=== PATIENT | female | born 1945 | race Caucasian/White ===

== ENCOUNTER → 2016-05-04 | Outpatient (CLI) | payer MEDICARE, OTHER ==
--- NOTE | 2016-05-04 15:30 | NM ---
EXAMINATION TYPE: NM bone scan whole body DATE OF EXAM: 05/04/2016 3:16 PM COMPARISON: Lumbar spine 11 April 2016 HISTORY: Low back pain M54.5, paresthesia skin, R20.2 Delayed whole-body scanning was performed following the injection of 27.5 mCi Tc 99m MDP. Images acq uired 4 hours post injection. FINDINGS: Focus of abnormal increased radiotracer uptake is present along the left anterior fifth rib. Bandlike uptake is noted at T12 and L4 compatible with probable osteoporotic compression fractures. Normal so ft tissue uptake is present. Uptake within the feet, ankles, wrists, elbows, shoulders, knees, sterno manubrial joints and hands is likely due to degenerative change. IMPRESSION: Osteoporotic compression fractures are suspected. Degenerative changes. Correlate for trauma to the a nterior fifth rib on the left.
== END ==
LOC: RADNMMAIN 10:37
PROVIDERS: ATTEND Physical Medicine & Rehabilitation
DX: R20.2 Paresthesia of skin (principal); M54.5 Low back pain; M47.896 Other spondylosis, lumbar region; M54.6 Pain in thoracic spine; M47.894 Other spondylosis, thoracic region
CPT/HCPCS: 78306; A9503

== ENCOUNTER → 2017-06-13 | Outpatient (CLI) | payer MEDICARE, OTHER ==
--- NOTE | 2017-06-13 11:14 | XR ---
EXAMINATION TYPE: XR chest 2V DATE OF EXAM: 06/13/2017 COMPARISON: 02/22/2016 HISTORY: 71 year-old female COPD disease unspecified, congested TECHNIQUE: Frontal and lateral views FINDINGS: Heart upper limits of normal in size, stable. Mild elongation of the thoracic aorta. Mild diffuse int erstitial prominence is similar to prior. Hazy lower lung densities related to overlying soft tissue. Mild hyperinflation. No consolidation or pleural effusion. IMPRESSION: Chronic changes, possible underlying COPD. No acute change seen.
== END | disposition home or self-care (01) ==
LOC: RADXRMAIN 10:40
PROVIDERS: ATTEND Family Medicine
DX: J98.4 Other disorders of lung (principal)
CPT/HCPCS: 71046

== ENCOUNTER → 2017-06-13 | Outpatient (CLI) | payer MEDICARE, OTHER ==
--- NOTE | 2017-06-15 08:50 | MM ---
Reason for exam: screening (asymptomatic). Last mammogram was performed 1 year and 4 months ago. History: Patient is postmenopausal and has history of breast cancer at age 58. Family history of breast cancer in mother at age 85 and breast cancer in aunt. Lumpectomy of the right breast, 2004. Radiation therapy of the right breast, 2003. Physical Findings: A clinical breast exam by your physician is recommended on an annual basis and results should be correlated with mammographic findings. MG 3D Screening Mammo W/Cad Bilateral CC and MLO view(s) were taken. Prior study comparison: February 05, 2016, bilateral MG 3d screening mammo w/cad. The breast tissue is heterogeneously dense. This may lower the sensitivity of mammography. There is chronic nodularity in the right breast. Asymmetric density medially in the left breast is stable. ASSESSMENT: Benign, BI-RAD 2 RECOMMENDATION: Routine screening mammogram of both breasts in 1 year.
== END | disposition home or self-care (01) ==
LOC: RADMAMWWP 10:18
PROVIDERS: ATTEND Family Medicine
DX: Z12.31 Encounter for screening mammogram for malignant neoplasm of breast (principal)
CPT/HCPCS: 77063; 77067

== ENCOUNTER → 2017-06-16 | Outpatient (CLI) | payer MEDICARE, OTHER ==
[2017-06-16 13:44] LABS: HGB 15.4 gm/dL (11.4-16.0); MCH 29.9 pg (25.0-35.0); MCHC 31.4 g/dL (31.0-37.0); MCV 95.4 fL (80.0-100.0); Platelet Count 178 k/uL (150-450); RBC 5.14 m/uL (3.80-5.40); RDW 12.9 % (11.5-15.5); WBC 5.8 k/uL (3.8-10.6)
[2017-06-16 13:56] LABS: INR 1.1 (<1.2); Prothrombin Time 10.3 sec (9.0-12.0)
== END ==
LOC: LABWHC1 12:34
PROVIDERS: ATTEND Surgery
DX: D68.9 Coagulation defect, unspecified (principal)
CPT/HCPCS: 36415; 85027; 85610

== ENCOUNTER 2017-07-04 07:23 | Day surgery (SDC) | payer MEDICARE, OTHER ==
[2017-06-30 09:43] VITALS: BMI 30.4
[~2017-07-04 07:23] MED LIST: LIDOCAINE 1% 20 ML VIAL (10MG/ML) FOR IV START INTRADERMA PRN
[2017-07-04 07:55] VITALS: RESP 18; TEMP 97.1
[2017-07-04] MEDS: LACTATED RINGERS 1,000 ML IV SCH ×2 (08:05→08:25)
[2017-07-04] MEDS ORDERED: PROPOFOL 10 MG/ML 20 ML VIAL IV ONE (08:28)
[2017-07-04] MEDS ORDERED: LIDOCAINE 1% INJ 10MG/ML (20 ML MDV) ONE (08:28)
[2017-07-04] MEDS ORDERED: GLUCAGON 1 MG/ML VIAL ONE (08:28)
--- NOTE | 2017-07-04 09:14 | P.OP ---
Date of Procedure: 07/04/17 Preoperative Diagnosis: Positive cologuard, never had colonoscopy Postoperative Diagnosis: Extensive diverticuli, sharp angulation at 30 cm, internal hemorrhoids Procedure(s) Performed: Attempted colonoscopy Anesthesia: MAC Surgeon: Shreya Vaughan Estimated Blood Loss (ml): 0 IV fluids (ml): 650 Pathology: none sent Condition: stable Disposition: PACU Indications for Procedure: Positive cologuard Operative Findings: Extensive diverticuli, tortuous bowel, internal hemorrhoids Description of Procedure: Patient was taken to the endoscopy suite and placed in the left lateral decubitus position. Rectal exam was performed patient was noted to have good sphincter tone no masses. Colonoscope was passed into the anus and into the rectum. The scope was able to be passed up to 30 cm however the bowel was extremely tortuous with sharp angulation with multiple diverticuli the scope could not be advanced beyond 30 cm despite multiple attempts. The patient was placed on her back and despite this the scope could not be advanced beyond 30 cm. Therefore the scope was withdrawn being careful to evaluate the mucosa up to 30 cm. The scope was retroflexed in the rectum and internal hemorrhoids were identified. Therefore was determined to terminate the procedure and obtain a barium enema. Impression/plan: 1. Extremely tortuous bowel with sharp angulation at 30 cm 2. Extensive diverticuli 3. Internal hemorrhoids Plan: 1. Barium enema 2. Probable conservative management of diverticuli and hemorrhoids
--- NOTE | 2017-07-04 09:17 | P.DS ---
Providers Attending physician: Shreya Vaughan Primary care physician: Manfred De Anda Plan - Discharge Summary New Discharge Prescriptions: No Action Levothyroxine Sodium [Synthroid] 50 mcg PO DAILY Atorvastatin [Lipitor] 20 mg PO HS Discharge Medication List Levothyroxine Sodium [Synthroid] 50 mcg PO DAILY 02/22/16 [History] Atorvastatin [Lipitor] 20 mg PO HS 06/30/17 [History] Follow up Appointment(s)/Referral(s): Shreya Vaughan MD [STAFF PHYSICIAN] - 1 Week Activity/Diet/Wound Care/Special Instructions: Scheduled for barium enema Do not drive today Follow-up with Dr. De Anda in 1 week Discharge Disposition: HOME SELF-CARE
[2017-07-04 09:58] VITALS: BP 109/59; PULSE 71
--- NOTE | 2017-07-04 14:30 | FL ---
EXAMINATION TYPE: FL barium enema w air contrast DATE OF EXAM: 07/04/2017 COMPARISON: NONE HISTORY: Change in bowel habits. Incomplete colonoscopy. TECHNIQUE: Barium and air were instilled into the colon from the rectum to the cecum. Multiple spot and overhead images are obtained. FINDINGS: There is evidence for annular constricting lesion within the region of the mid to proximal sigmoid colon. Findings felt to reflect malignancy until proven otherwise. Sigmoid diverticulosis not ed. No additional lesions identified with certainty. No polypoid lesions are identified. Mucosal fol d pattern has a normal appearance. No evidence for inflammatory bowel disease. Normal-appearing lexy endix which is retrocecal. No significant diverticular disease. IMPRESSION: 1.annular constricting lesion within the region of the mid to proximal sigmoid colon. Findings felt t o reflect malignancy until proven otherwise.
--- NOTE | 2017-07-07 06:11 | CDI ---
Date: 07/07/17 CDS/Household Chores Name: Sharron Mcqueen Phone: If any questions, call Kaylan Beck Chucking Machine Set Up Operator at [phone] Patient Name: Aleja Hwnag Admit Date: 07/04/17 Discharge Date: 07/04/17 ATTENTION: The [facility] Coding Staff appreciate your assistance in clarifying documentation. Please respond to the clarification below the line at the bottom and electronically sign. The [facility] Coding staff will review the response and follow-up if needed. Please note: Queries are made part of the Legal Health Record. If you have any questions, please contact the Chucking Machine Set Up Operator. Dear Dr. Vaughan, Please provide clarification on the extent the procedure was performed. Please clarify the area of the colon that the procedure reached. (i.e. Sigmoid, Descending, transverse) Thank you for your kind consideration. The procedure was terminated at about 30 cm, in the distal sigmoid. MTDD
== END 2017-07-04 10:13 | disposition home or self-care (01) ==
LOC: ORWHC2ENDO 07:23
PROVIDERS: ATTEND Surgery
DX: Q43.8 Other specified congenital malformations of intestine (principal); K64.8 Other hemorrhoids; R19.5 Other fecal abnormalities; E78.5 Hyperlipidemia, unspecified; E07.9 Disorder of thyroid, unspecified; Z79.899 Other long term (current) drug therapy; K57.30 Diverticulosis of large intestine without perforation or abscess without bleeding
CPT/HCPCS: 74280; 45330; J1610; J2001; J2704; 45378

== ENCOUNTER → 2018-07-11 | Outpatient (CLI) | payer MEDICARE, OTHER ==
--- NOTE | 2018-07-12 10:42 | MM ---
Reason for exam: screening (asymptomatic). Last mammogram was performed 1 year and 1 month ago. History: Patient is postmenopausal and has history of breast cancer at age 58. Family history of breast cancer in mother at age 85 and breast cancer in aunt. Lumpectomy of the right breast, 2004. Radiation therapy of the right breast, 2003. Physical Findings: A clinical breast exam by your physician is recommended on an annual basis and results should be correlated with mammographic findings. MG Screening Mammo w CAD Bilateral CC and MLO view(s) were taken. Prior study comparison: June 13, 2017, bilateral MG 3d screening mammo w/cad. February 05, 2016, bilateral MG 3d screening mammo w/cad. The breast tissue is heterogeneously dense. This may lower the sensitivity of mammography. Right upper outer quadrant middle depth focal asymmetry 5cm from nipple. ASSESSMENT: Incomplete: need additional imaging evaluation, BI-RAD 0 RECOMMENDATION: Special view mammogram of the right breast. If lesion persists on supplemental views, image directed ultrasound is recommended. [facility] will attempt to contact patient to return for supplemental views and ultrasound if indicated.
== END | disposition home or self-care (01) ==
LOC: RADMAMWWP 10:40
PROVIDERS: ATTEND Family Medicine
DX: Z12.31 Encounter for screening mammogram for malignant neoplasm of breast (principal)
CPT/HCPCS: 77067

== ENCOUNTER → 2018-07-17 | Outpatient (CLI) | payer MEDICARE, OTHER ==
--- NOTE | 2018-07-18 07:35 | MM ---
Reason for exam: additional evaluation requested from abnormal screening. Last mammogram was performed less than 1 month ago. History: Patient is postmenopausal and has history of breast cancer at age 58. Family history of breast cancer in mother at age 85 and breast cancer in aunt. Lumpectomy of the right breast, 2004. Radiation therapy of the right breast, 2003. Physical Findings: Nurse did not find any significant physical abnormalities on exam. MG 3D Work Up W/Cad RT Spot compression CC, spot compression MLO, and LM view(s) were taken of the right breast. Prior study comparison: July 11, 2018, bilateral MG screening mammo w CAD. June 13, 2017, bilateral MG 3d screening mammo w/cad. The breast tissue is heterogeneously dense. This may lower the sensitivity of mammography. The previously seen abnormality resolves on additional views and appears as fibroglandular tissue compatible with summation. No suspicious abnormality. These results were verbally communicated with the patient and result sheet given to the patient on 07/17/18. ASSESSMENT: Negative, BI-RAD 1 RECOMMENDATION: Return to routine screening mammogram schedule for both breasts.
== END | disposition home or self-care (01) ==
LOC: RADMAMWWP 14:40
PROVIDERS: ATTEND Family Medicine
DX: R92.8 Other abnormal and inconclusive findings on diagnostic imaging of breast (principal)
CPT/HCPCS: 77065; G0279; 77061

== ENCOUNTER → 2019-03-23 | Outpatient (CLI) | payer MEDICARE, OTHER ==
[2019-03-23 11:54] LABS: Basophils # (A) 0.1 k/uL (0-0.2); Basophils % (A) 1 %; Eosinophils # (A) 0.2 k/uL (0-0.7); Eosinophils % (A) 4 %; HCT 39.1 % (34.0-46.0); Lymphocytes # (A) 1.6 k/uL (1.0-4.8); Lymphocytes % (A) 35 %; MCHC 33.4 g/dL (31.0-37.0); MCV 95.9 fL (80.0-100.0); Mean Platelet Volume 6.1; Monocytes # (A) 0.3 k/uL (0-1.0); Monocytes % (A) 6 %; Neutrophils # (A) 2.4 k/uL (1.3-7.7); Neutrophils % (A) 52 %; Platelet Count 180 k/uL (150-450); RBC 4.08 m/uL (3.80-5.40); RDW 11.8 % (11.5-15.5); WBC 4.6 k/uL (3.8-10.6)
[2019-03-23 23:09] LABS: Albumin 4.2 g/dL (3.80-4.90); Anion Gap 6.6 mmol/L (4.00-12.00); BUN/Creat Ratio 22.22 Ratio (12.00-20.00); Calcium 9.5 mg/dL (8.7-10.3); Carbon Dioxide 28.4 mmol/L (21.6-31.8); Globulin 2.1 g/dL (1.6-3.3); Non-African American GFR(CKD) 63.9 (60.0-200.0); Potassium 4.4 mmol/L (3.5-5.5); Total Bilirubin 0.4 mg/dL (0.3-1.2); Total Protein 6.3 g/dL (6.2-8.2)
[2019-03-23 23:17] LABS: T4, Free (Free Thyroxine) 1.1 ng/dL (0.80-1.80)
== END | disposition home or self-care (01) ==
LOC: LABWHC1 11:05
PROVIDERS: ATTEND Family Medicine
DX: K64.8 Other hemorrhoids (principal); J44.9 Chronic obstructive pulmonary disease, unspecified
CPT/HCPCS: 36415; 80053; 84439; 84443; 85025

== ENCOUNTER → 2019-04-05 | Outpatient (CLI) | payer MEDICARE, OTHER ==
--- NOTE | 2019-04-05 10:10 | BD ---
EXAMINATION TYPE: Axial Bone Density DATE OF EXAM: 04/05/2019 COMPARISON: 02/05/2016 CLINICAL HISTORY: M 81.0 Height: 63.7 IN Weight: 152 LBS FRAX RISK QUESTIONS: History of Fracture in Adulthood: THORACIC FX AGE 71 Secondary Osteoporosis: 3. Menopause before 45: AGE 51 RISK FACTORS HISTORY OF: Spine Fracture: THORACIC SPINE AGE 71 Family History of Osteoporosis: YES MOTHER; GRANDFATHER AND GRANDMOTHER(P) Active: YES Postmenopausal woman: AGE 51 Take estrogen and/or progesterone medications: NOT NOW How long: TOOK CONTROL FROM AGE [age] Frequent falls: YES DUE TO BALANCE MEDICATIONS: Thyroid Medications: YES Which medication: Synthroid How Lon + YEARS Osteoporosis Medications: NOT NOW Which medication: Actonel How Lon MONTHS Additional Medications: THYROID MED, TYLENOL 4, VIT B COMPLEX, CHANTIX, Additional History: BREAST CANCER WITH RADIATION EXAM MEASUREMENTS: Bone mineral densitometry was performed using the [email or web address] System. Bone mineral density as measured about the Lumbar spine is: ----- L1-L4(G/cm2): 1.080 T Score Values are as follows: ----- L2: -1.4 ----- L3: -1.1 ----- L4: -0.1 ----- L1-L4: -0.8 Bone mineral density has: Increased 6.2% since study of: 02/05/2016 Bone mineral density about the R hip (g/cm2): 0.674 Bone mineral density about the L hip (g/cm2): 0.632 T Score values are as follows: -----R Neck: -2.6 -----L Neck: -2.9 -----R Total: -2.5 -----L Total: -2.6 Bone mineral density has: Decreased -8.1% since study of: 02/05/2016 IMPRESSION: Osteoporosis (T Score less than -2.5). There is increased fracture risk and therapy is usually indicated based on age. Re-Screen 1-2 years. NOTE: T-SCORE=SD OF THE YOUNG ADULT MEAN.
== END | disposition home or self-care (01) ==
LOC: RADBDWWP 07:10
PROVIDERS: ATTEND Family Medicine
DX: M81.0 Age-related osteoporosis without current pathological fracture (principal)
CPT/HCPCS: 77080

== ENCOUNTER → 2019-04-11 | Outpatient (CLI) | payer MEDICARE, OTHER ==
[2019-04-11 16:26] LABS: Chol/HDL Ratio 3.13; LDL Cholesterol,Calculated 113.4 mg/dL (0.0-131.0); VLDL Calculation 18.6 mg/dL (5.00-40.00)
== END | disposition home or self-care (01) ==
LOC: LABWHC1 08:20
PROVIDERS: ATTEND Family Medicine
DX: E03.9 Hypothyroidism, unspecified (principal); M80.08XD Age-related osteoporosis with current pathological fracture, vertebra(e), subsequent encounter for fracture with routine healing
CPT/HCPCS: 36415; 80061; 82306

== ENCOUNTER → 2019-09-25 | Outpatient (CLI) | payer MEDICARE, OTHER ==
--- NOTE | 2019-09-25 14:12 | XR ---
EXAMINATION TYPE: XR lumbar spine 2 or 3V DATE OF EXAM: 09/25/2019 Comparison: 02/01/2016 Clinical History: 74-year-old female chronic lower back pain, S32.000, G62.9 Findings: Mild levoconvex curvature of the lumbar spine. Inferior endplate compression deformity of T12 appears new from prior exam. Mild superior endplate deformity of L4 is unchanged. Moderate degenerative disc disease L3-L4 and L4-L5 and mild at additional levels. Facet arthropathy throughout with straightening of the normal lumbar lordosis. Grade 1 retrolisthesis at L2-L3 and grade 1 anterolisthesis at L3-L4. Impression: 1. Inferior endplate compression deformity with resultant anterior wedging at T12 not seen back in 20 16. Finding is new from then but still age indeterminate. Clinically correlate. 2. Minimal superior endplate deformity of L4 is chronic and unchanged. 3. Scattered [id number] degenerative disc disease increased from 2016. Facet arthropathy with g rade 1 spondylolistheses at L2-L3 and L3-L4.
== END | disposition home or self-care (01) ==
LOC: RADXRMAIN 13:51
PROVIDERS: ATTEND Family Medicine
DX: M51.36 Other intervertebral disc degeneration, lumbar region (principal); M43.16 Spondylolisthesis, lumbar region; M46.96 Unspecified inflammatory spondylopathy, lumbar region; G62.9 Polyneuropathy, unspecified
CPT/HCPCS: 72100

== ENCOUNTER → 2019-12-05 | Outpatient (CLI) | payer MEDICARE, OTHER ==
--- NOTE | 2019-12-09 09:02 | MM ---
Reason for exam: screening (asymptomatic). Last mammogram was performed 1 year and 5 months ago. History: Patient is postmenopausal and has history of breast cancer at age 58. Family history of breast cancer in mother at age 85 and breast cancer in aunt. Lumpectomy of the right breast, 2004. Radiation therapy of the right breast, 2003. Physical Findings: A clinical breast exam by your physician is recommended on an annual basis and results should be correlated with mammographic findings. MG 3D Screening Mammo W/Cad Bilateral CC and MLO view(s) were taken. Prior study comparison: July 17, 2018, right breast MG 3d work up w/cad RT. July 11, 2018, bilateral MG screening mammo w CAD. The breast tissue is heterogeneously dense. This may lower the sensitivity of mammography. There is chronic nodularity in the left breast. Post surgical and post therapy changes right breast. No significant changes when compared with prior studies. ASSESSMENT: Benign, BI-RAD 2 RECOMMENDATION: Routine screening mammogram of both breasts in 1 year.
== END | disposition home or self-care (01) ==
LOC: RADMAMWWP 09:50
PROVIDERS: ATTEND Family Medicine
DX: Z12.31 Encounter for screening mammogram for malignant neoplasm of breast (principal)
CPT/HCPCS: 77063; 77067

== ENCOUNTER → 2020-03-12 | Outpatient (CLI) | payer MEDICARE, OTHER ==
[2020-03-12 11:38] VITALS: BP 112/65; PULSE 77; RESP 16; TEMP 97.7
--- NOTE | 2020-03-12 11:40 | P.PAINCN ---
History of Present Illness - Reason for Consult Consult date: 03/12/20 - History of Present Illness This is a 74-year-old patient referred by Dr. Walker/Edison for low back pain. In the past she has injections with Dr Hogan in the past with no significant relief. Unclear what procedures she's had, sounds like she has had epidurals as well as medial branch blocks that had no relief at all. She has been started on Cymbalta 30 mg since the end of December which has been a miracle for her as she states. From june to January she said she was a "vegetable," she then started Cymbalta and has been able to move around much more. It is located with the low back with numbness that radiates down the entire bilateral lower extremity to the feet. She states that she is a difficulty with prolonged ambulation is unable to walk for long distances without her legs feeling heavy. Notes that she is unsteady with her gait. Also note some pain in her groin bilaterally that is improving over time. She also complains of pain in her neck which she says radiates to bilateral upper extremities and causes her hands to lock up. She has had carpal tunnel surgery on the left and is considering getting it done on the right. Feels surgery didn't help with her pain although did help with her overall strength and functionality. Currently her pain as an 8 out of 10, at best 5 out of 10, at its worst a 10 out of 10. In addition to above, 13-point review of systems is also negative for chest pain, shortness of breath, changes in vision, changes in hearing, new onset weakness, abdominal pain, diarrhea, extreme fatigue, malaise, fever, skin changes, homicidal or suicidal ideation, or bowel or bladder incontinence. Physical exam: Vital Signs: Reviewed in EMR GENERAL: Well appearing, walks with a cane PSYCH: Mood and affect is appropriate. Awake, alert, and oriented SKIN: Skin color, texture, turgor normal, no rashes or lesions HEENT: Normocephalic, atraumatic. EOM intact CV: No pedal edema RESP: Respirations are unlabored, no audible wheezing GI: Abdomen non-distended MUSCULOSKELETAL: Bilateral upper and lower extremity strength is normal and symmetric. No atrophy or tone abnormalities are noted. Neck: pain to palpation over the cervical paraspinous muscles. Spurling positive, Axial Loading Test positive Mcneal's sign negative. pain with neck flexion, extension, and lateral flexion. No obvious deformity or signs of trauma. Normal cervical lordotic curve and normal cervical spine range of motion Lumbar spine: Straight leg raising in the sitting position is negative for radicular pain. pain to palpation over the lumbar spine and paraspinous muscles . positive for pain with facet loading and back extension/rotation. Decreased lumbar extension due to pain Extremities: Peripheral joint ROM is full and pain free without obvious instability or laxity in all four extremities. No edema or skin discolorations noted. Gait: Gait is normal NEUR: Bilateral upper and lower extremity coordination and muscle stretch reflexes are physiologic and symmetric. Negative clonus. No loss of sensation is noted. Cranial nerves are grossly intact. Imaging: Reveiwed in EMR Assessment: 1. Centralized pain syndrome 2. Lumbar spondylosis 3. Neck pain Plan: 1. Explanation: Diagnoses, prognoses, and multiple treatment options including but not limited to physical therapy, interventional therapies, medication management and surgery were discussed with the patient and all questions were answered to the patient's satisfaction. 2. Investigations: Can consider cervical MRI in the future if patient would like to proceed with that. Overall she has neck pain and arm pain that is nondermatomal so I am unsure if there is any sort of specific nerve root impingement that might be occurring. 3. Counseling: The patient was counseled for 3 minutes on EXERCISE. Specifically, the patient was instructed regarding the importance of exercise in the context of both chronic pain and overall health. 4. Procedures: At this point I do not consider her a procedural candidate. She has had epidurals and medial branch blocks no relief. Although there are findings on MRI, her pain is mostly centralized in nature. Her pain is located in her legs, her groin, her back, her neck, and her arms and she feels like they're all interconnected. In the future we do obtain a cervical MRI we could consider trying cervical epidural or cervical medial branch block on her findings, however at this time I would not recommend any procedures 5. Consultations: Her primary care doctor was going to send her neurologist. I'm unsure what her neurologist will continue to her care, however given that her primary care provider did recommend this and did encourage her to find one that could fit her insurance that she is having trouble with that. Did have a long discussion with her that overall given that she has centralized pain, physical therapy and mindfulness techniques will be the most helpful for her. I did write her a prescription for physical therapy. 6. Medications: I encouraged her and is optimistic that her Cymbalta will continue to be helpful for her. She is currently taking 30 mg once a day. She says this medication is helping her significantly and I told her that in the future they can go up to 60 mg if needed. 7. Disposition: As needed Past Medical History Past Medical History: Cancer, COPD, Hyperlipidemia, Thyroid Disorder Additional Past Medical History / Comment(s): back pain, breast cancer History of Any Multi-Drug Resistant Organisms: None Reported Past Surgical History: Hysterectomy Additional Past Surgical History / Comment(s): THYROIDECTOMY, RT partial mastectomy, BILAT CATARACT SX, Past Anesthesia/Blood Transfusion Reactions: No Reported Reaction Past Psychological History: No Psychological Hx Reported Past Alcohol Use History: None Reported Additional Past Alcohol Use History / Comment(s): SMOKES 1 PACK A WEEK SINCE AGE 19 Past Drug Use History: None Reported - Past Family History Mother Family Medical History: Cancer Medications and Allergies Home Medications Medication Instructions Recorded Confirmed Type Levothyroxine Sodium [Synthroid] 50 mcg PO DAILY 02/22/16 07/04/17 History Atorvastatin [Lipitor] 20 mg PO HS 06/30/17 07/04/17 History Allergies Allergy/AdvReac Type Severity Reaction Status Date / Time No Known Allergies Allergy Verified 03/12/20 10:58 PQRS Measure Charge Sheet PQRS Narrative: Smoking Status Current every day smoker Home Medications: Ambulatory Orders Levothyroxine Sodium [Synthroid] 50 mcg PO DAILY 02/22/16 Atorvastatin [Lipitor] 20 mg PO HS 06/30/17
== END | disposition home or self-care (01) ==
LOC: PNWHC3 10:35
PROVIDERS: ATTEND Anesthesiology
DX: G89.0 Central pain syndrome (principal); M47.9 Spondylosis, unspecified; M54.2 Cervicalgia; E07.9 Disorder of thyroid, unspecified; E78.5 Hyperlipidemia, unspecified; Z79.890 Hormone replacement therapy; Z79.899 Other long term (current) drug therapy
CPT/HCPCS: 99211

== ENCOUNTER → 2020-04-07 | Outpatient (CLI) | payer MEDICARE, OTHER ==
[2020-04-07 20:13] LABS: African American GFR (CKD) 64.7 (60.0-200.0); Albumin 4.4 g/dL (3.80-4.90); Anion Gap 7.3 mmol/L (4.00-12.00); Calcium 9.5 mg/dL (8.7-10.3); Carbon Dioxide 27.7 mmol/L (21.6-31.8); Globulin 2.2 g/dL (1.6-3.3); Magnesium 2.1 mg/dL (1.5-2.4); Non-African American GFR(CKD) 55.8 (60.0-200.0); Total Bilirubin 0.7 mg/dL (0.3-1.2); Total Protein 6.6 g/dL (6.2-8.2)
== END | disposition home or self-care (01) ==
LOC: LABWHC1 11:39
PROVIDERS: ATTEND Psychiatry & Neurology Neurology
DX: R20.2 Paresthesia of skin (principal); Z79.899 Other long term (current) drug therapy
CPT/HCPCS: 36415; 80053; 82306; 82607; 83735; 84439; 84443; 84481

== ENCOUNTER → 2020-06-15 | Outpatient (CLI) | payer MEDICARE, OTHER ==
--- NOTE | 2020-06-15 11:13 | XR ---
EXAMINATION TYPE: XR chest 2V DATE OF EXAM: 06/15/2020 COMPARISON: 06/13/2017 INDICATION: Lumbar stenosis posterior mastectomy TECHNIQUE: Frontal and lateral views of the chest are obtained. FINDINGS: The heart size is normal. The pulmonary vasculature is normal. The lungs are clear. Osseous structures appear intact. IMPRESSION: 1. No acute pulmonary process.
[2020-06-15 11:16] LABS: Basophils # (A) 0.1 k/uL (0-0.2); Basophils % (A) 2 %; Eosinophils # (A) 0.2 k/uL (0-0.7); Eosinophils % (A) 4 %; HGB 12.8 gm/dL (11.4-16.0); Lymphocytes # (A) 1.3 k/uL (1.0-4.8); Lymphocytes % (A) 31 %; MCV 93.9 fL (80.0-100.0); Mean Platelet Volume 7.4; Monocytes # (A) 0.3 k/uL (0-1.0); Monocytes % (A) 8 %; Neutrophils # (A) 2.3 k/uL (1.3-7.7); Neutrophils % (A) 54 %; Platelet Count 187 k/uL (150-450); RBC 4.26 m/uL (3.80-5.40); RDW 12.4 % (11.5-15.5); WBC 4.2 k/uL (3.8-10.6)
[2020-06-15 11:28] LABS: INR 0.9 (<1.2); Prothrombin Time 9.6 sec (9.0-12.0)
[2020-06-15 11:31] LABS: Appearance,Urine Clear (Clear); Bilirubin,Urine Negative (Negative); Blood,Urine Negative (Negative); Color,Urine Yellow; Glucose,Urine (UA) Negative (Negative); Ketones,Urine Negative (Negative); Leukocyte Esterase,Urine Negative (Negative); Nitrite,Urine Negative (Negative); Protein,Urine Negative (Negative); Specific Gravity,Urine 1.018 (1.001-1.035); Urobilinogen,Urine <2.0 mg/dL (<2.0)
[2020-06-15 11:39] LABS: Calcium 9.7 mg/dL (8.4-10.2); Potassium 4.1 mmol/L (3.5-5.1)
== END | disposition home or self-care (01) ==
LOC: LABPAT 10:00
PROVIDERS: ATTEND Orthopaedic Surgery Orthopaedic Surgery of the Spine
DX: Z01.818 Encounter for other preprocedural examination (principal); M48.061 Spinal stenosis, lumbar region without neurogenic claudication
CPT/HCPCS: 36415; 71046; 80048; 81003; 85025; 85610; 85730

== ENCOUNTER → 2020-06-22 | Outpatient (CLI) | payer MEDICARE, OTHER | END | disposition home or self-care (01) | LOC: LABPAT 15:29 | PROVIDERS: ATTEND Orthopaedic Surgery Orthopaedic Surgery of the Spine | DX: Z01.812 Encounter for preprocedural laboratory examination (principal) | CPT/HCPCS: 87070 ==

== ENCOUNTER 2020-06-24 07:26 | Day surgery (SDC) | payer MEDICARE, OTHER ==
[2020-06-16 12:20] VITALS: BMI 28.5
[~2020-06-24 07:26] MED LIST changes: +LIDOCAINE 1% (10MG/ML) FOR IV START INTRADERMA PRN; -LIDOCAINE 1% 20 ML VIAL (10MG/ML) FOR IV START INTRADERMA PRN; +ONDANSETRON 4 MG/2 ML VIAL IVP ONE; +ceFAZolin 1,000 MG in SODIUM CHLORIDE 0.9% IRRIGATIO 1,000 ML IRRIGATION PRN
[2020-06-24] MEDS: LACTATED RINGERS 1,000 ML IV SCH (07:48)
[2020-06-24] MEDS ORDERED: ROCURONIUM 10 MG/ML (5 ML VIAL) IV ONE (07:55)
[2020-06-24] MEDS ORDERED: LIDOCAINE 1% INJ 10MG/ML (20 ML MDV) ONE (07:55)
[2020-06-24] MEDS ORDERED: PHENYLEPHRINE-0.9% NACL SYG 1,000 MCG/10 ML SYRINGE ONE (07:55)
[2020-06-24] MEDS ORDERED: SUCCINYLCHOLINE CHLORIDE 100 MG/5 ML SYR IV ONE (07:55)
[2020-06-24] MEDS ORDERED: fentaNYL (PF) 50 MCG/ML 2 ML AMP ONE (07:55)
[2020-06-24] MEDS ORDERED: PROPOFOL 10 MG/ML 20 ML VIAL IV ONE (07:55)
[2020-06-24] MEDS ORDERED: WATER FOR INJECTION, STERILE 10 ML VIAL IV ONE (07:55)
[2020-06-24] MEDS ORDERED: GLYCOPYRROLATE 0.2 MG/ML 2 ML VIAL ONE (07:55)
[2020-06-24] MEDS ORDERED: NEOSTIGMINE 1 MG/ML 10 ML VIAL ONE (07:55)
[2020-06-24] MEDS ORDERED: HYDROmorphone (PF) 1 MG/ML ONE (07:55)
[2020-06-24] MEDS ORDERED: MIDAZOLAM 2 MG/2 ML VIAL ONE (07:55)
[2020-06-24] MEDS ORDERED: ePHEDrine SULFATE/0.9% NACL/PF 50 MG/5 ML SYRINGE IV ONE (07:55)
[2020-06-24] MEDS ORDERED: BUPIVACAIN-EPI 0.5%-1:200,000 30 ML VIAL SQ ONE (09:25)
[2020-06-24] MEDS ORDERED: GELATIN SPONGE,ABSORB (LARGE) 1 EACH SPONGE TOPICAL ONE (09:26)
[2020-06-24] MEDS ORDERED: THROMBIN (BOVINE) 5,000 UNIT VIAL TOPICAL ONE (09:26)
[2020-06-24] MEDS ORDERED: LACTATED RINGERS 1,000 ML IV ONE ×3 (09:45→12:00)
[2020-06-24] MEDS ORDERED: MAGNESIUM HYDROXIDE 2,400 MG/10 ML CUP PO PRN (11:10)
[2020-06-24] MEDS ORDERED: BENZOCAINE/MENTHOL LOZENG 1 EACH LOZENGE MUCOUS MEM PRN (11:10)
[2020-06-24] MEDS ORDERED: HYDROmorphone 0.5 MG/0.5 ML SYRINGE IVP PRN (11:10)
[2020-06-24] MEDS ORDERED: ONDANSETRON 4 MG/2 ML VIAL IVP PRN (11:11)
[2020-06-24] MEDS ORDERED: IBANDRONATE SODIUM 150 MG PO SCH (11:15)
--- NOTE | 2020-06-24 11:20 | P.OP ---
Date of Procedure: 06/24/20 Preoperative Diagnosis: Severe spinal stenosis L3 4, spondylolisthesis L3 4, low back pain, lower extremity radiculopathy, lower extremity weakness, facet arthrosis, degenerative disc disease with disc protrusion Postoperative Diagnosis: Same Anesthesia: GETA Pathology: none sent Condition: stable Disposition: PACU Description of Procedure: DESCRIPTION OF PROCEDURE(S): BRIEF OPERATIVE NOTE Preoperative Diagnosis: Severe spinal stenosis L3 4, spondylolisthesis L3 4, low back pain, lower extremity radiculopathy, lower extremity weakness, facet arthrosis, degenerative disc disease with disc protrusion Postoperative Diagnosis: Severe spinal stenosis L3 4, spondylolisthesis L3 4, low back pain, lower extremity radiculopathy, lower extremity weakness, facet arthrosis, degenerative disc disease with disc protrusion Procedure: Laminectomy and decompression L3 [address] navigation aided Minimally invasive Posterior lateral decompression and facet fusion L3 4 Minimally invasive Transforaminal lumbar interbody fusion for a 360 fusion L3 4 Discectomy for decompression L3 4 Placement of interbody graft L3 4 Use of computer navigation for fusion Local autogenous bone grafting Aspiration of bone marrow from the vertebral body pedicle L3 on the right Use of bone graft extenders Surgeon: Dr. Walker Jig Filler: Aiden ORTIZ who is present throughout the entire the case persistence during positioning, dissection, exposure, visualization, and all crucial elements of the case as well as closure. Anesthesia: General anesthesia per Estimated blood loss: Approximately 150 mL Complications: None apparent Components implanted: K2M minimally invasive Sims pedicle screw system withscrews measuring 6.5 mm in diameter to rods one Prolift 8-13 interbody cage with 10 mL of osteo amp bio4 bone graft substitute and 30 mL of the BX bone fibers to supplement the local autogenous bone graft and bone marrow aspirate Disposition: To recovery room in good stable condition. OPERATIVE INDICATIONS The patient has had severe issues at their lower extremity in her lower back over the past several years with significant worsening over the past several months. Over the past few months the patient had pain at her back and her bilateral lower extremity. The patient is having severe radicular symptoms at her bilateral lower extremity with weakness, particularly on the right. The patient is having significant pain in her back. They are unable to obtain any comfort. We did aggressive conservative treatment with medications therapy and interventional pain management however she was not having any relief. The patient also showed evidence of a listhesis with some dynamic instability at L3 4. The patient has been through conservative treatment. We discussed various treatment options including surgery, and the patient wishes to proceed with surgery We discussed the risk, patient's alternatives and benefits of surgery including but not limited to, risk of bleeding risk of infection, risk of need for further surgery, risk of decreased, loss of motion, muscle function, malunion nonunion, hardware failure, nerve damage, paralysis, heart attack, blindness and . They understood issues with the current pandemic and the possibility of exposure. OPERATIVE SUMMARY After discussing all the risks, patient alternatives and benefits at length, the patient elected to proceed with surgical intervention, signed informed consent, and presented for their procedure. The patient was seen and examined in the preoperative holding area and the surgical site was marked. The patient was giv en antibiotics and brought to the operating room. The patient was sedated and intubated by anesthesia in standard fashion. The patient was positioned on to the operating room table in a prone position on the appropriate frame which was well-padded and well molded. We were careful to pad any bony prominences and pressure points. We were careful to maintain the patient's cervical spine and good neutral alignment and position throughout. The patient was prepped and draped in a normal standard fashion. An appropriate timeout and keystone protocol performed. We were able to proceed with the s urgery. The local wound area was infiltrated with local anesthetic. Over the right iliac crest I was able to make small stab incisions and establish a guidepin screw fixation to the iliac crest 2. I was able place the computer referencing device over the guidepins to establish an appropriate reference point for the Ziem CT navigation. We then were able to place patient in an appropriate drape and do a navigation spin for visualization and 3-D reconstruction of the lumbar spine. I was able utilize C-arm guidance and navigation to establish appropriate position over the pedicles bilaterally at the appropriate levels at L3 4 . With the appropriate levels confirmed was able to make small stab incisions over the appropriate pedicle sites bilaterally. Utilizing the computer navigation device I was able to establish bony landmarks at the right iliac crest for a bony reference point for the navigation device. I was able to establish a Jamshidi needle over the lateral aspect of the pedicle and advanced the trocar into the pedicle being careful not to breech superiorly inferiorly medially or laterally using computer navigation device. Position was confirmed regularly with AP and lateral images on C-arm and with the computer navigation device at the appropriate levels bilaterally. I was able to establish the trocar into the pedicle appropriately into the posterior aspect of the vertebral body bilaterally at the appropriate levels. This was done at each of the pedicle positions and each of the vertebrae. At the superior vertebrae of L3 I was able to take approximately 25 mL of bone aspiration for use later in the case to supplement the allograft and autograft bone. I was able place the guidewire into the trocar and into the vertebral body appropriately under C-arm guidance. Dissection was taken down over the wire to the appropriate starting position for the screw placed. The appropriate length screw was chosen, threaded over the guidewire and screwed appropriately into the pedicle and vertebral body under C-arm guidance in excellent alignment and position with good bony purchase. Note was made of somewhat soft bone at each of the sites at L3 4 but we were still able to obtain good This is done at each of the screw sites at the appropriate levels.. With the screws intact I extended the incision to connect the screw hole sites on the most symptomatic side on the right. I dissected down to establish access over the pars and lamina to the base of the spinous process. I was able to expose the facet joint. The capsule the facet was taken down and showed some facet arthrosis at the joint. I was able to use a combination of curettes and Kerrison rongeurs and a high-speed drill to take down the facet joint and do a facetectomy. I was able get excellent foraminal decompression and central decompression with undermining across midline to perform a laminectomy centrally and contralaterally. As able get good central decompression. The ligamentum flavum was taken down to further decompress centrally and at bilateral neural foramen. I was able to expose the disc space and visualize the traversing nerve root. Note was made of some disc protrusion and disc herniation that was abutting the traversing nerve root at the level causing further compression of the nerve root. I was able to establish a annulotomy at the appropriate level protecting soft tissue and neural structures. Note was made of some disc desiccation at the disc. I performed a complete discectomy with accommodation of curettes and rasps and scrapers. I was able get good endplate preparation at the disc space. I sized for the appropriate size interbody spacer protecting the soft tissue and neural structures. The wound was copiously irrigated and suctioned dry. There is no evidence of any dural tear or leak. I was able to pack the disc space with local autogenous bone graft as well as a small amount of bone graft which was also placed into the interbody cage itself. Protecting the soft tissue structures and neural structures I was able place the interbody cage in good alignment and good position. I was able to do the expansion of the pro-lift cage appropriately to get good fixation at the vertebral bodies with good fit and fill at the interbody space. Position was confirmed with C-arm guidance. Good hemostasis maintained. There is no evidence of any dural tear or leak. The wound was irrigated and suctioned dry. With the hardware intact, intraoperative C-arm imaging was again taken which showed good alignment and position of the hardware at the appropriate levels of L3 4. We were then able to measure, contour and place the rods and appropriate hardware bilaterally. I was able to place capcrews, tighten them down, and torque them with the torque screwdriver appropriately. With this intact I was able to place the local autogenous bone graft with additional bone graft enhancer as necessary into the posterior lateral gutters over the decorticated transverse processes and facet joints on the contralateral side. The remainder of the bone graft was placed over the facet joint on the contralateral side after taking down the facet joint capsule. With the bone graft intact, a stable construct, and good decompression at the appropriate levels, we were able to proceed with closure. Good hemostasis was maintained. There is no evidence of dural tear or leak. The fascia was closed for a watertight closure. he subcuticular tissue was closed with absorbable suture. The wound was cleaned and dried and dressed with the appropriate dressing. The drapes were broken down. The patient was gently rolled back onto their hospital bed being careful to maintain their cervical spine and good neutral alignment and position. They were woken up by anesthesia, extubated, and brought to the recovery room in good stable condition. The patient will be admitted to the hospital for appropriate postoperative care, medical management and monitoring. We will continue to follow them closely about the postoperative course.
[2020-06-24] MEDS: HYDROmorphone 0.5 MG/0.5 ML SYRINGE IVP PRN ×2 (11:45→11:55)
[2020-06-24] MEDS ORDERED: ERGOCALCIFEROL 1,250 MCG (50,000 IU) CAPSULE PO SCH (12:00)
[2020-06-24] MEDS: HYDROmorphone 1 MG/ML 1 ML SYRINGE IVP PRN ×3 (13:01→19:52)
--- NOTE | 2020-06-24 14:51 | XR ---
EXAMINATION TYPE: XR lumbar spine 2 or 3V, FL guidance operating room DATE OF EXAM: 06/24/2020 Comparison: 07/12/2019 Clinical History: 74-year-old female MIN INVASIVE LUMBAR FUSION Findings: Intraoperative fluoroscopy demonstrating L3-L4 posterior and interbody fusion changes. FLUOROSCOPY Fluoroscopy time of 22 seconds was used during minimally invasive lumbar fusion. 2 image/s document/ s the procedure. Impression: Intraoperative fluoroscopy as above.
[2020-06-24] MEDS: ACETAMINOPHEN TAB 500 MG TAB PO SCH (16:24)
[2020-06-24] MEDS: CLINDAMYCIN 600 MG in DEXTROSE 5% IN WATER 50 ML IVPB SCH ×2 (16:33)
[2020-06-24] MEDS: HYDROcodone/APAP 5-325MG 1 EACH TAB PO PRN ×2 (17:39→22:15)
[2020-06-24] MEDS: SODIUM CHLORIDE 0.9% 1,000 ML IV SCH (19:36)
[2020-06-24 20:47] LABS: Glucose,Whole Blood 91 mg/dL (75-99)
[2020-06-24] MEDS: SYMBICORT 160-4.5 MCG INHALER INHALATION SCH (21:16)
[2020-06-25] MEDS: HYDROmorphone 1 MG/ML 1 ML SYRINGE IVP PRN ×2 (00:20→05:38)
[2020-06-25] MEDS: CLINDAMYCIN 600 MG in DEXTROSE 5% IN WATER 50 ML IVPB SCH ×6 (00:21→17:07)
[2020-06-25] MEDS: ACETAMINOPHEN TAB 500 MG TAB PO SCH ×6 (00:50→21:03)
[2020-06-25] MEDS: SODIUM CHLORIDE 0.9% 1,000 ML IV SCH ×2 (01:53→19:13)
[2020-06-25] MEDS: HYDROcodone/APAP 5-325MG 1 EACH TAB PO PRN ×3 (02:31→17:06)
[2020-06-25] MEDS: LACTATED RINGERS 1,000 ML IV SCH (05:12)
[2020-06-25] MEDS: LEVOTHYROXINE 50 MCG TAB PO SCH (05:37)
[2020-06-25 06:51] LABS: Glucose,Whole Blood 113 mg/dL (75-99)
[2020-06-25] MEDS: SYMBICORT 160-4.5 MCG INHALER INHALATION SCH ×2 (07:12→21:28)
[2020-06-25] MEDS: CALCIUM CARBONATE 500 MG CHEWABLE PO SCH ×2 (07:34→07:44)
[2020-06-25] MEDS: SENNOSIDES-DOCUSATE SODIUM 1 EACH TAB PO SCH ×2 (07:39→07:45)
[2020-06-25] MEDS ORDERED: IPRATROPIUM-ALBUTEROL 3 ML NEB INHALATION PRN (10:04)
[2020-06-25 11:04] LABS: Basophils # (A) 0.03 X 10*3/uL (0.00-0.10); Basophils % (A) 0.3 %; Eosinophils # (A) 0.06 X 10*3/uL (0.04-0.35); Eosinophils % (A) 0.7 %; HCT 30.4 % (37.2-46.3); HGB 9.7 g/dL (12.0-15.0); Lymphocytes # (A) 0.76 X 10*3/uL (0.90-5.00); Lymphocytes % (A) 8.8 %; MCH 30.8 pg (27.0-32.0); MCHC 31.9 g/dL (32.0-37.0); MCV 96.5 fL (80.0-97.0); Mean Platelet Volume 11.1 fL (9.5-12.2); Monocytes # (A) 0.82 X 10*3/uL (0.20-1.00); Monocytes % (A) 9.5 %; Neutrophils # (A) 6.88 X 10*3/uL (1.80-7.70); Neutrophils % (A) 80.1 %; Platelet Count 132 X 10*3/uL (140-440); RBC 3.15 X 10*6/uL (4.10-5.20); RDW 12.2 % (11.5-14.5)
[2020-06-25 12:39] LABS: African American GFR (CKD) 73.5 (60.0-200.0); Anion Gap 6.9 mmol/L (4.00-12.00); BUN/Creat Ratio 18.89 Ratio (12.00-20.00); Calcium 7.7 mg/dL (8.7-10.3); Carbon Dioxide 26.1 mmol/L (21.6-31.8); Non-African American GFR(CKD) 63.4 (60.0-200.0)
--- NOTE | 2020-06-25 13:00 | P.CONS ---
History of Present Illness - Reason for Consult Consult date: 06/25/20 Medical management COPD, hyperlipidemia, hypothyroidism Requesting physician: Jennifer Walker - Chief Complaint Severe spinal stenosis L3, L4, back pain, lower extremity radiculop - History of Present Illness This is a 74-year-old female status post laminectomy and decompression L3, 4 secondary to severe symptomatic spinal stenosis with lower extremity radiculopathy, back pain and weakness. Tolerated procedure well. Patient is borderline hypotensive, attributed to IV pain medication. T-max 100.2, normal WBC. Maintained on IV fluids at 100 MLS per hour. Urine appears concentrated .Maintaining O2 sats in the low 90s on 2 L nasal cannula.Currently up in chair, complaining of spasms. Appears to be mildly impulsive. Denies nausea, vomiting or diarrhea. Denies abdominal pain. Passing flatus.Denies chest pain, palpitations or shortness of breath. Denies lightheadedness, dizziness or focal deficits. Review of Systems ROS Statement: Those systems with pertinent positive or pertinent negative responses have been documented in the HPI. ROS Other: All systems not noted in ROS Statement are negative. Past Medical History Past Medical History: Cancer, COPD, Hyperlipidemia, Thyroid Disorder Additional Past Medical History / Comment(s): back pain, breast cancer History of Any Multi-Drug Resistant Organisms: None Reported Past Surgical History: Hysterectomy Additional Past Surgical History / Comment(s): THYROIDECTOMY, RT partial mastectomy, BILAT CATARACT SX, Past Anesthesia/Blood Transfusion Reactions: No Reported Reaction Additional Past Anesthesia/Blood Transfusion Reaction / Comm: states "had bleeding with hysterectomy surgery but does not recall any blood transfusion" Past Psychological History: No Psychological Hx Reported Smoking Status: Former smoker Past Alcohol Use History: None Reported Additional Past Alcohol Use History / Comment(s): SMOKES 1 PACK A WEEK SINCE AGE 19 Past Drug Use History: None Reported - Past Family History Mother Family Medical History: Cancer Medications and Allergies Home Medications Medication Instructions Recorded Confirmed Type Levothyroxine Sodium [Synthroid] 50 mcg PO QAM 02/22/16 06/16/20 History Acetaminophen Tab [Tylenol Tab] 500 mg PO Q6H 03/12/20 06/24/20 History Ergocalciferol [Vitamin D2] 50,000 unit PO Q7D 03/12/20 06/24/20 History Ibandronate Sodium 150 mg PO QMONTHLY 03/12/20 06/24/20 History Budesonide-Formot 160-4.5 Mcg 2 puff INHALATION BID 06/16/20 06/24/20 History [Symbicort 160-4.5 Mcg Inhaler] Calcium Carbonate [Calcium] 1,200 mg PO DAILY 06/16/20 06/24/20 History Carboxymethylcellulose Sodium 1 drop BOTH EYES TID PRN 06/16/20 06/24/20 History [Refresh Tears] Allergies Allergy/AdvReac Type Severity Reaction Status Date / Time carbamazepine [From Tegretol] AdvReac Swelling Verified 06/24/20 07:30 cephalexin AdvReac yeast Verified 06/24/20 07:30 infecton pregabalin AdvReac "made me Verified 06/24/20 07:30 feel like I was drunk" nicotin patches Allergy skin Uncoded 06/24/20 07:30 irritation Physical Exam Vitals: Vital Signs Temp Pulse Pulse Resp BP BP BP 06/25/20 07:39 81 18 06/25/20 07:24 99.3 F 81 18 83/40 06/25/20 06:33 98.6 F 90 16 89/49 06/25/20 04:00 100.2 F H 83 16 94/55 06/25/20 02:08 99.6 F 89 16 89/49 06/25/20 01:10 98.4 F 94 15 74/40 06/24/20 19:30 16 06/24/20 16:00 77 20 06/24/20 15:35 97.5 F L 77 20 90/48 06/24/20 12:30 73 16 96/58 06/24/20 12:15 51 L 16 95/59 06/24/20 12:00 52 L 18 100/55 06/24/20 11:45 58 L 16 94/52 06/24/20 11:30 60 14 95/55 06/24/20 11:16 96.8 F L 73 16 92/55 Pulse Ox 06/25/20 07:39 06/25/20 07:24 90 L 06/25/20 06:33 92 L 06/25/20 04:00 92 L 06/25/20 02:08 92 L 06/25/20 01:10 95 06/24/20 19:30 06/24/20 16:00 06/24/20 15:35 95 06/24/20 12:30 97 06/24/20 12:15 100 06/24/20 12:00 98 06/24/20 11:45 100 06/24/20 11:30 96 06/24/20 11:16 97 Intake and Output 06/24/20 06/25/20 06/25/20 22:59 06:59 14:59 Intake Total 800 Output Total 700 Balance 800 -700 Intake: Intake, IV Titration 450 Amount Clindamycin 600 mg In 50 Dextrose 5% in Water 50 ml @ 50 mls/hr IVPB Q8HR SOLE Rx#:[id number] Sodium Chloride 0.9% 1, 400 000 ml @ 100 mls/hr IV . Q10H SOLE Rx#:[id number] Oral 350 Output: Urine 700 Other: Voiding Method Indwelling Catheter Indwelling Catheter Weight 77.6 kg PHYSICAL EXAM: VITAL SIGNS: As above GENERAL: Sitting up in chair, mild anxiety HEENT: Conjunctivae normal. eyes normal. NECK: No JVD. No thyroid enlargement. No LNs CARDIOVASCULAR: S1, S2 regular. No murmur RESPIRATION: Breath sounds diminished in the bases. No rhonchi or crackles. No bronchial breathing. ABDOMEN: Soft, nontender . No guarding. no masses palpable. No ascites, No hepatosplenomegaly.Bowel sounds heard. LEGS: No edema. no swelling PSYCHIATRY: Alert and oriented X3, mood and affect normal. NERVOUS SYSTEM: Cranial N 2-12 grossly normal. Moves all 4 limbs. No focal deficits. Strength and sensation grossly intact while sitting. Skin: Warm and dry,no rash Lymphatic system. No LN neck axilla. Results CBC & Chem 7: 06/25/20 06:24 Labs: Abnormal Lab Results - Last 24 Hours (Table) 06/25/20 Range/Units 06:49 POC Glucose (mg/dL) 113 H (75-99) mg/dL Assessment and Plan Assessment: status post laminectomy and decompression L3, 4 secondary to severe symptomatic spinal stenosis with lower extremity radiculopathy, back pain and weakness. Hypotension, borderline, expected outcome postoperative ,suspected IV pain me dication related Acute postoperative anemia, expected outcome, EBL 150ml, suspect dilutional. Acute hypoxic respiratory failure, postoperative, expected outcome, suspect atelectasis COPD, stable Hypothyroidism History of breast cancer with right partial mastectomy Hyperlipidemia Nicotine dependence Plan: Continue on current medication regime ,monitoring and systemic treatment. DVT prophylaxis and pain management as per orthopedic spine surgery. Would recommend attempting to refrain from IV push Dilaudid as suspect that is contributing to her hypotension.PPI iintact for GI prophylaxis. Chest x-ray ordered secondary to acute hypoxia. UA/cx ordered. Recent pulmonary toileting with incentive spirometer reinforced. Thank you Dr. Walker for the consult. The impression and plan of care has been dictated as directed. : I performed a history and examination of this patient, discussed the same with the dictator. I agree with the dictator's note ,documented as a scribe. Any additional findings or plans will be noted.
--- NOTE | 2020-06-25 13:11 | P.PN ---
Progress Note - Text Progress Note Date: 06/25/20 Postoperative day #1 Patient is seen and examined today at bedside. The patient has some pain around the surgical site as expected. She is having significant spasm medication at her lower back particular with movement. She feels her legs are numb but this is unchanged from prior to her surgery. She feels she can move her legs adequately. Pain is being controlled with medication. Physical Exam Afebrile with stable vital signs Abdomen is soft nontender. Chest has good excursion deep and space expiration The incision site is clean dry and intact. No erythema there is no purulence. Her dressings intact and her lower back Extremities have not had neurologic change from prior to surgery. She has sustained dorsal flexion plantarflexion and EHL intact. She is able to bend her knees well. Her compartments are soft. Calves and thighs were soft nontender without evidence of DVT. Assessment/Plan Postoperative day #1 status post minimally invasive decompression fusion L3 4 for her spondylolisthesis with severe spinal stenosis with lower extremity radiculopathy and neurogenic claudication Patient is progressing as expected from the surgery. She is having spasm in her low back and she is somewhat of an anxious person and may have some benefit with a little bit of Valium in addition to her medications. She has been up out of bed into a chair today. She still requiring significant assistance and I don't think that should be able to be safe getting her Hernandez out get today. We will keep her antibiotic until her Hernandez can come out. Likely tomorrow morning. We will continue to increase the patient's mobilization with therapy. We will continue pain control with oral or IV medications. We'll continue to follow patient closely.
[2020-06-25] MEDS: diazePAM 2 MG TAB PO PRN ×2 (13:36→21:01)
[2020-06-25] MEDS: PANTOPRAZOLE 40 MG/10 ML VIAL IVP SCH (13:37)
[2020-06-25] MEDS: IPRATROPIUM-ALBUTEROL 3 ML NEB INHALATION SCH ×3 (13:51→21:28)
[2020-06-26] MEDS: SODIUM CHLORIDE 0.9% 1,000 ML IV SCH ×3 (00:24→15:11)
[2020-06-26] MEDS: HYDROcodone/APAP 5-325MG 1 EACH TAB PO PRN ×4 (00:25→19:39)
[2020-06-26] MEDS: CLINDAMYCIN 600 MG in DEXTROSE 5% IN WATER 50 ML IVPB SCH ×4 (00:26→09:07)
[2020-06-26 04:17] LABS: Appearance,Urine Clear (Clear); Bilirubin,Urine Negative (Negative); Blood,Urine Trace (Negative); Color,Urine Yellow; Glucose,Urine (UA) Negative (Negative); Ketones,Urine 2+ (Negative); Leukocyte Esterase,Urine Negative (Negative); Mucus,Urine Rare /hpf; Nitrite,Urine Negative (Negative); Protein,Urine Negative (Negative); RBC,Urine 3 /hpf (0-5); Specific Gravity,Urine 1.013 (1.001-1.035); Urobilinogen,Urine <2.0 mg/dL (<2.0); WBC,Urine 1 /hpf (0-5)
[2020-06-26] MEDS: LACTATED RINGERS 1,000 ML IV SCH (04:29)
[2020-06-26] MEDS: diazePAM 2 MG TAB PO PRN (04:42)
[2020-06-26] MEDS: ACETAMINOPHEN TAB 500 MG TAB PO SCH ×4 (04:42→23:49)
[2020-06-26] MEDS: LEVOTHYROXINE 50 MCG TAB PO SCH (04:43)
[2020-06-26 06:20] LABS: African American GFR (CKD) 72 (>60 ml/min/1.73 sqM); Anion Gap 2 mmol/L; Blood Urea Nitrogen 12 mg/dL (7-17); Calcium 7.6 mg/dL (8.4-10.2); Carbon Dioxide 26 mmol/L (22-30); Chloride 108 mmol/L (98-107); Glucose 115 mg/dL (74-99); Non-African American GFR(CKD) 62 (>60 ml/min/1.73 sqM); Potassium 3.8 mmol/L (3.5-5.1); Sodium 136 mmol/L (137-145)
[2020-06-26] MEDS: SYMBICORT 160-4.5 MCG INHALER INHALATION SCH ×2 (07:51→19:44)
[2020-06-26] MEDS: IPRATROPIUM-ALBUTEROL 3 ML NEB INHALATION SCH ×4 (07:52→19:44)
--- NOTE | 2020-06-26 08:42 | P.PN ---
Progress Note - Text Progress Note Date: 06/26/20 Orthopedic Spine: History of present illness: Patient is a pleasant 74-year-old female who is seen and examined at the bedside following posterior lateral decompression and fusion performed Monday. Patient states they are doing ok postsurgically. She has not been able to ambulate independently. Her Hernandez catheter remains intact. She states she does have some difficulty with mobilization due to her pain. She does state she wants to increase her mobility and start to ambulate on her own. She states she did have an episode of significant anxiety with crying this morning that lasted for a couple hours which did improve after talking to nursing. She is receiving Valium 2 mg which has helped control her symptoms. She is not currently complaining of the bedside any lower extremity radiculopathy or weakness. She is able to move her legs without significant difficulty. Currently does not complain of nausea, vomiting, fever, or chills. Patient is eating without difficulty. She continues to be seen in exam by medicine for her other medical diagnoses as well. She has a history of lung disease and hypothyroidism. Physical Exam Lumbar Fusion: Status post surgical day number 2 Patient is awake, alert, and oriented 3 Vital signs stable Good chest excursion with deep inspiration and expiration Abdomen soft nontender Dorsiflexion, plantarflexion, and extensor hallucis longus positive sustained bilaterally No signs or symptoms of DVT; no calf pain; pneumatic cuffs intact bilateral lower extremities Dressing is clean, dry, and intact; no erythema, purulence, or signs of infection Hemovac drain well secure Neurovascularly intact bilaterally lower extremities Assessment: Status post L3-4 minimally invasive posterior lateral decompression and fusion with transforaminal lumbar interbody fusion Low back pain L3-4 spondylolisthesis Lower extremity radiculopathy and weakness Lumbar facet arthropathy Lumbar degenerative disc disease L3 4 severe spinal canal stenosis Hypothyroidism History lung disease Anxiety Plan: 1. Ambulate as tolerated; work with Physical Therapy to increase mobilization 2. Continue pain control with IV and oral medications with Dilaudid, [place], and Valium MAPS has been reviewed today, 06/26/2020, with an Overall Overdose Risk Score of 110. An "Opiod Start Talking" Form has been signed and placed in the patient's chart. A prescription has been written for [place] 5 mg/325 mg 1-2 tabs every 6 hours as needed for pain, dispensed #56. Description also written for Valium 2 mg 1 tablet 3 times a day as needed for anxiety, dispensed #21. Prescriptions have been sent to her pharmacy. 3. Dressings to remain intact with optifoam 4. We have encouraged patient to increase her mobility and ambulation and are planning to discontinue her Hernandez catheter today when she is better able to mobilize 4. Medical management can continue to manage patient for patient's other medical diagnoses 5. We will continue to follow the patient closely; depending on her progress, we may plan for discharge home in the next couple days or possibly to a rehabilitation facility 6. Patient can follow-up with Aiden Myers PA-C or Dr. Patricio Walker at [facility] in 2-3 weeks following discharge
[2020-06-26 08:55] LABS: Basophils # (A) 0.03 X 10*3/uL (0.00-0.10); Basophils % (A) 0.3 %; Eosinophils # (A) 0.06 X 10*3/uL (0.04-0.35); Eosinophils % (A) 0.6 %; HCT 29.5 % (37.2-46.3); HGB 9.6 g/dL (12.0-15.0); Lymphocytes # (A) 0.86 X 10*3/uL (0.90-5.00); Lymphocytes % (A) 9.3 %; MCH 31.4 pg (27.0-32.0); MCHC 32.5 g/dL (32.0-37.0); MCV 96.4 fL (80.0-97.0); Mean Platelet Volume 11.2 fL (9.5-12.2); Monocytes % (A) 6.5 %; Neutrophils # (A) 7.63 X 10*3/uL (1.80-7.70); Neutrophils % (A) 82.7 %; Platelet Count 127 X 10*3/uL (140-440); RBC 3.06 X 10*6/uL (4.10-5.20); WBC 9.24 X 10*3/uL (4.50-10.00)
[2020-06-26] MEDS: CALCIUM CARBONATE 500 MG CHEWABLE PO SCH (08:55)
[2020-06-26] MEDS: PANTOPRAZOLE 40 MG/10 ML VIAL IVP SCH (08:56)
[2020-06-26] MEDS: SENNOSIDES-DOCUSATE SODIUM 1 EACH TAB PO SCH (08:56)
--- NOTE | 2020-06-26 09:01 | XR ---
EXAMINATION TYPE: XR chest 1V portable DATE OF EXAM: 06/26/2020 COMPARISON: 06/15/2020 INDICATION: Follow-up hypoxia TECHNIQUE: Single frontal view of the chest is obtained. FINDINGS: The heart size is normal. The pulmonary vasculature is upper limits of normal. The lungs are clear. IMPRESSION: 1. No acute pulmonary process.
--- NOTE | 2020-06-26 13:51 | P.PN ---
Subjective Progress Note Date: 06/26/20 This is a 74-year-old female status post laminectomy and decompression L3, 4 secondary to severe symptomatic spinal stenosis with lower extremity radiculopathy, back pain and weakness. Tolerated procedure well. Patient is borderline hypotensive, attributed to IV pain medication. T-max 100.2, normal WBC. Maintained on IV fluids at 100 MLS per hour. Urine appears concentrated .Maintaining O2 sats in the low 90s on 2 L nasal cannula.Currently up in chair, complaining of spasms. Appears to be mildly impulsive. Denies nausea, vomiting or diarrhea. Denies abdominal pain. Passing flatus.Denies chest pain, palpitations or shortness of breath. Denies lightheadedness, dizziness or focal deficits. 06/26/2020 complained of spasms yesterday and anxiety, placed on Valium as per orthopedic spine. No further Dilaudid, currently maintained on [place] with systolic blood pressure improved. Positive pain, attempted to participate with PT. Passing flatus, denies nausea vomiting or diarrhea. Denies abdominal pain. T-max 99.3, WBC within normal limits ,UA negative, chest x-ray nonacute. Hemoglobin 9.6, platelets 127. Denies lightheadedness, dizziness or focal deficits. Denies chest pain, palpitations or shortness of breath. Objective - Vital Signs Vital signs: Vital Signs Temp 98.9 F 06/26/20 08:00 Pulse 92 06/26/20 08:03 Resp 18 06/26/20 08:00 BP 111/56 06/26/20 08:00 Pulse Ox 95 06/26/20 08:00 Intake & Output 06/25/20 06/26/20 06/26/20 18:59 06:59 18:59 Intake Total 1300 Output Total 700 Balance 1300 -700 Intake: Intake, IV Titration 1300 Amount Clindamycin 600 mg In 100 Dextrose 5% in Water 50 ml @ 50 mls/hr IVPB Q8HR SOLE Rx#:[id number] Sodium Chloride 0.9% 1, 1200 000 ml @ 100 mls/hr IV . Q10H SOLE Rx#:[id number] Output: Urine 700 Other: Voiding Method Indwelling Catheter Indwelling Catheter - Exam PHYSICAL EXAM: VITAL SIGNS: As above GENERAL: Alert and oriented 3, Sitting up in chair, no acute distress. HEENT: Conjunctivae normal. eyes normal. Oral mucosa moist. NECK: No JVD. No thyroid enlargement. No LNs CARDIOVASCULAR: S1, S2 regular. No murmur RESPIRATION: Breath sounds diminished in the bases. No rhonchi, crackles or wheezing. ABDOMEN: Soft, nontender . No guarding. no masses palpable. Positive bowel sounds. LEGS: No edema. no swelling NERVOUS SYSTEM: Cranial N 2-12 grossly normal. Moves all 4 limbs. No focal deficits. Strength and sensation grossly intact while sitting. Skin: Warm and dry,no rash, dressing clean dry and intact. - Labs CBC & Chem 7: 06/26/20 05:45 06/26/20 05:45 Labs: Abnormal Lab Results - Last 24 Hours (Table) 06/25/20 06/26/20 06/26/20 Range/Units 06:24 03:40 05:45 RBC 3.06 L (4.10-5.20) X 10*6/uL Hgb 9.6 L (12.0-15.0) g/dL Hct 29.5 L (37.2-46.3) % Plt Count 127 L (140-440) X 10*3/uL Immature Gran # 0.06 H (0.00-0.04) X 10*3/uL Lymphocytes # 0.86 L (0.90-5.00) X 10*3/uL Sodium (137-145) mmol/L Chloride (98-107) mmol/L Glucose (74-99) mg/dL Calcium 7.7 L (8.7-10.3) mg/dL Urine Ketones 2+ H (Negative) Urine Blood Trace H (Negative) Urine Mucus Rare H (None) /hpf 06/26/20 Range/Units 05:45 RBC (4.10-5.20) X 10*6/uL Hgb (12.0-15.0) g/dL Hct (37.2-46.3) % Plt Count (140-440) X 10*3/uL Immature Gran # (0.00-0.04) X 10*3/uL Lymphocytes # (0.90-5.00) X 10*3/uL Sodium 136 L (137-145) mmol/L Chloride 108 H (98-107) mmol/L Glucose 115 H (74-99) mg/dL Calcium 7.6 L (8.7-10.3) mg/dL Urine Ketones (Negative) Urine Blood (Negative) Urine Mucus (None) /hpf Assessment and Plan Assessment: status post laminectomy and decompression L3, 4 secondary to severe symptomatic spinal stenosis with lower extremity radiculopathy, back pain and weakness. Hypotension, borderline, expected outcome postoperative ,suspected IV pain medication related Acute postoperative anemia, expected outcome, EBL 150ml, suspect dilutional. Acute hypoxic respiratory failure, postoperative, expected outcome, suspect atel ectasis COPD, stable Hypothyroidism History of breast cancer with right partial mastectomy Hyperlipidemia Nicotine dependence Plan: Continue on current medication regime ,monitoring and systemic treatment. Granddaughter at bedside. Discussed with both Patient currently requiring [facility] [place] [facility]. and that we will initiate the set up. If by Monday she improves, plan will be reevaluated. PT/OT. Aggressive pulmonary toileting with incentive spirometer reinforced. The impression and plan of care has been dictated as directed. : I performed a history and examination of this patient, discussed the same with the dictator. I agree with the dictator's note ,documented as a scribe. Any additional findings or plans will be noted.
[2020-06-27] MEDS: HYDROcodone/APAP 5-325MG 1 EACH TAB PO PRN ×6 (01:39→23:58)
[2020-06-27] MEDS: diazePAM 2 MG TAB PO PRN (05:11)
[2020-06-27] MEDS: ACETAMINOPHEN TAB 500 MG TAB PO SCH ×3 (06:11→17:48)
[2020-06-27] MEDS: ARTIFICIAL TEARS-HYPROMELLOSE DROPS 15 ML BTL BOTH EYES PRN ×2 (06:13→07:53)
[2020-06-27] MEDS: LEVOTHYROXINE 50 MCG TAB PO SCH (06:13)
[2020-06-27] MEDS: IPRATROPIUM-ALBUTEROL 3 ML NEB INHALATION SCH ×2 (07:39→11:12)
[2020-06-27] MEDS: SYMBICORT 160-4.5 MCG INHALER INHALATION SCH ×2 (07:39→20:32)
[2020-06-27] MEDS: CALCIUM CARBONATE 500 MG CHEWABLE PO SCH (07:53)
[2020-06-27] MEDS: PANTOPRAZOLE 40 MG TABLET PO SCH (07:53)
[2020-06-27] MEDS: SENNOSIDES-DOCUSATE SODIUM 1 EACH TAB PO SCH (07:53)
[2020-06-27] MEDS: LACTATED RINGERS 1,000 ML IV SCH (07:59)
[2020-06-27] MEDS: SODIUM CHLORIDE 0.9% 1,000 ML IV SCH ×2 (08:00→17:13)
--- NOTE | 2020-06-27 09:27 | P.PN ---
Progress Note - Text Progress Note Date: 06/27/20 Postoperative day #3 Patient is seen and examined today at bedside. The patient has some pain around the surgical site as expected. Pain is being controlled with medication. She is actually making progress she was able to get up out of her bed up to a chair with a walker with just me as standby assist today. She is not yet had a bowel movement and she is not passing much gas. She is eating only very minimal. She is voiding freely. Physical Exam Afebrile with stable vital signs Abdomen is soft nontender. Chest has good excursion deep and space expiration The incision site is clean dry and intact. No erythema there is no purulence. There is no active drainage at her back Extremities have not had neurologic change from prior to surgery. He has sustained dorsal flexion plantar flexion and EHL intact Calves and thighs were soft nontender without evidence of DVT. Assessment/Plan Postoperative day #3 status post minimally invasive decompression and fusion at L3 4 for her severe spinal stenosis with spondylolisthesis and lower extremity radiculopathy and weakness Patient is progressing as expected from the surgery. She had significant debility before her surgery and is slowing her response terms of active mobilization but she continues to make steady progress. I don't think that she is ready to be at home today. She is still requiring significant assistance and has not had a bowel movement. I like to have bowel movement before moving home or even to a fdc facility. She certainly would like to try to be at home if she is able and that may take a couple more days. We will continue to increase the patient's mobilization with therapy. We will continue pain control with oral or IV medications. We'll continue to follow patient closely.
--- NOTE | 2020-06-27 12:19 | P.PN ---
Subjective Progress Note Date: 06/27/20 This is a 74-year-old female status post laminectomy and decompression L3, 4 secondary to severe symptomatic spinal stenosis with lower extremity radiculopathy, back pain and weakness. Tolerated procedure well. Patient is borderline hypotensive, attributed to IV pain medication. T-max 100.2, normal WBC. Maintained on IV fluids at 100 MLS per hour. Urine appears concentrated .Maintaining O2 sats in the low 90s on 2 L nasal cannula.Currently up in chair, complaining of spasms. Appears to be mildly impulsive. Denies nausea, vomiting or diarrhea. Denies abdominal pain. Passing flatus.Denies chest pain, palpitations or shortness of breath. Denies lightheadedness, dizziness or focal deficits. 06/26/2020 complained of spasms yesterday and anxiety, placed on Valium as per orthopedic spine. No further Dilaudid, currently maintained on [place] with systolic blood pressure improved. Positive pain, attempted to participate with PT. Passing flatus, denies nausea vomiting or diarrhea. Denies abdominal pain. T-max 99.3, WBC within normal limits ,UA negative, chest x-ray nonacute. Hemoglobin 9.6, platelets 127. Denies lightheadedness, dizziness or focal deficits. Denies chest pain, palpitations or shortness of breath. 06/27/2020: patient is without much c/o today. status post laminectomy and decompression L3, 4 POD #3 SHe has not had a BM since surgery. She denies chest pian, pressure, sob, nauseea or vomitting. She seems a little confused, most likely from her pain meds. We discussed ECF rehab for her, as I doubt she will be ready for home by monday. Tmax 100.5 overnight. Chest xray yesterday clear.Labs essentially normal with the exception of anemia. Objective - Vital Signs Vital signs: Vital Signs Temp 98.4 F 06/27/20 08:00 Pulse 76 06/27/20 08:00 Resp 20 06/27/20 08:00 BP 133/70 06/27/20 08:00 Pulse Ox 95 06/27/20 08:00 Intake & Output 06/26/20 06/27/20 06/27/20 18:59 06:59 18:59 Output Total 850 Balance -850 Output: Urine 850 Uretheral ([place]andez) 450 Other: Voiding Method Indwelling Catheter Toilet Toilet # Voids 1 - Exam GENERAL: Alert and oriented 3, Sitting up in chair, no acute distress.seems a little confused when answering questions. HEENT: Conjunctivae normal. eyes normal. Oral mucosa moist. NECK: No JVD. No thyroid enlargement. No LNs CARDIOVASCULAR: S1, S2 regular. No murmur RESPIRATION: Breath sounds diminished in the bases. No rhonchi, crackles or wheezing. ABDOMEN: Soft, nontender . No guarding. no masses palpable. Positive bowel sounds. LEGS: No edema. no swelling NERVOUS SYSTEM: Cranial N 2-12 grossly normal. Moves all 4 limbs. No focal deficits. Strength and sensation grossly intact while sitting. Skin: Warm and dry,no rash, dressing clean dry and intact. - Labs CBC & Chem 7: 06/26/20 05:45 06/26/20 05:45 Assessment and Plan (1) S/P lumbar laminectomy Current Visit: Yes Status: Acute Code(s): Z98.890 - OTHER SPECIFIED POSTPROCEDURAL STATES SNOMED Code(s): 64004594957774675 (2) Fever Current Visit: Yes Status: Acute Code(s): R50.9 - FEVER, UNSPECIFIED SNOMED Code(s): 709897094 (3) Macrocytic anemia Current Visit: Yes Status: Acute Code(s): D53.9 - NUTRITIONAL ANEMIA, UNSPECIFIED SNOMED Code(s): 58707816 (4) COPD (chronic obstructive pulmonary disease) Current Visit: Yes Status: Acute Code(s): J44.9 - CHRONIC OBSTRUCTIVE PU LMONARY DISEASE, UNSPECIFIED SNOMED Code(s): 92086526 (5) Hypothyroidism Current Visit: Yes Status: Acute Code(s): E03.9 - HYPOTHYROIDISM, UNSPECIFIED SNOMED Code(s): 98112362 (6) H/O malignant neoplasm of breast Current Visit: Yes Status: Acute Code(s): Z85.3 - PERSONAL HISTORY OF MALIGNANT NEOPLASM OF BREAST SNOMED Code(s): 981831552 (7) H/O partial mastectomy Current Visit: Yes Status: Acute Code(s): Z90.10 - ACQUIRED ABSENCE OF UNSPECIFIED BREAST AND NIPPLE SNOMED Code(s): 026170525 (8) Hyperlipemia Current Visit: Yes Status: Acute Code(s): E78.5 - HYPERLIPIDEMIA, UNSPECIFIED SNOMED Code(s): 78782233 (9) Tobacco abuse Current Visit: Yes Status: Acute Code(s): Z72.0 - TOBACCO USE SNOMED Code(s): 536079844 Plan: repeat labs in am repeat CXR in am Rocephin 1 g ivpb x 1 continue nicotine replacment contiue PT/OT plan ECF for monday unless there is a large improvement in her status reeevalutae in he next 24 hours
[2020-06-28] MEDS: ACETAMINOPHEN TAB 500 MG TAB PO SCH ×4 (00:25→17:24)
[2020-06-28] MEDS: SODIUM CHLORIDE 0.9% 1,000 ML IV SCH ×2 (02:09→11:42)
[2020-06-28] MEDS: HYDROcodone/APAP 5-325MG 1 EACH TAB PO PRN ×3 (04:47→17:25)
[2020-06-28] MEDS: ARTIFICIAL TEARS-HYPROMELLOSE DROPS 15 ML BTL BOTH EYES PRN (04:50)
[2020-06-28] MEDS: LEVOTHYROXINE 50 MCG TAB PO SCH (06:01)
[2020-06-28] MEDS: SYMBICORT 160-4.5 MCG INHALER INHALATION SCH (07:42)
--- NOTE | 2020-06-28 07:55 | XR ---
EXAMINATION TYPE: XR chest 2V DATE OF EXAM: 06/28/2020 COMPARISON: Chest x-ray 06/26/2020, 06/13/2017 HISTORY: Fever, COPD TECHNIQUE: Frontal and lateral views of the chest are obtained. FINDINGS: There is blunting of one of the posterior costophrenic angles noted on the lateral exam, manning spected prominence of interstitium, some minimal patchy basilar density may reflect scarring or atele ctasis. There is no pneumothorax seen. The cardiac silhouette size is within normal limits. There ar e prominent lung volumes. The osseous structures are intact. Aorta is dense. Patient is rotated. IMPRESSION: Cannot exclude small effusion, some minimal basilar atelectasis, chronic interstitial ch anges.
[2020-06-28 07:56] VITALS: RESP 18
[2020-06-28] MEDS: LACTATED RINGERS 1,000 ML IV SCH (07:58)
[2020-06-28] MEDS: PANTOPRAZOLE 40 MG TABLET PO SCH (08:02)
[2020-06-28] MEDS: SENNOSIDES-DOCUSATE SODIUM 1 EACH TAB PO SCH (08:02)
[2020-06-28] MEDS: CALCIUM CARBONATE 500 MG CHEWABLE PO SCH (08:02)
--- NOTE | 2020-06-28 09:39 | P.PN ---
Subjective Progress Note Date: 06/28/20 Principal diagnosis: Status post lumbar fusion This is a 74 year-old female post L3-L4 fusion. This is post-op day 4. The patient was evaluated at the bedside today. The patient denies nausea, vomiting, abdominal pain, shortness of breath, and chest pain this morning. She states her pain is controlled at this time. The patient has been up with physical therapy and is ambulating to the bathroom. She has not had a bowel movement yet but states that its close. She states she needs to manually push around her rectum area to help her pass the stool with her hand and is unable to due to her recent back surgery. Objective - Vital Signs Vital signs: Vital Signs Temp 98.9 F 06/28/20 07:17 Pulse 74 06/28/20 07:17 Resp 18 06/28/20 07:17 BP 125/54 06/28/20 07:17 Pulse Ox 96 06/28/20 07:17 Intake & Output 06/27/20 06/28/20 06/28/20 18:59 06:59 18:59 Other: Voiding Method Toilet # Voids 4 - Exam The patient does not appear in acute distress. Alert and orientated x3. Dressing is clean dry and intact. Incision appears fine with no erythema or active drainage. Calf is soft and nontender. Extremities have not had neurologic change from prior to surgery. She has sustained dorsal flexion plantar flexion and EHL intact. Good foot and ankle motion without difficulty. Sensation and circulatory status is intact. - Labs CBC & Chem 7: 06/26/20 05:45 06/26/20 05:45 Labs: Abnormal Lab Results - Last 24 Hours (Table) 06/27/20 Range/Units 12:40 PTH Intact 74.5 H (14.0-72.0) pg/mL Assessment and Plan (1) Status post lumbar spinal fusion Current Visit: Yes Status: Acute Code(s): Z98.1 - ARTHRODESIS STATUS SNOMED Code(s): 86389365874549 Plan: 1. Ambulate as tolerated; work with Physical Therapy to increase mobilization 2. Continue pain control with [place] and Valium 3. Dressings to remain intact with optifoam 4. We have encouraged patient to increase her mobility and ambulation 4. Medical management can continue to manage patient for patient's other medical diagnoses 5. We will continue to follow the patient closely; depending on her progress and if she is able to have a BM before discharge, we may plan for discharge home likely tomorrow. 6. Patient can follow-up with Aiden Myers PA-C or Dr. Patricio Walker at [facility] in 2-3 weeks following discharge
[2020-06-28 11:49] LABS: Basophils # (A) 0.03 X 10*3/uL (0.00-0.10); Basophils % (A) 0.5 %; Eosinophils # (A) 0.31 X 10*3/uL (0.04-0.35); Eosinophils % (A) 5.1 %; HCT 26.9 % (37.2-46.3); HGB 8.6 g/dL (12.0-15.0); Lymphocytes # (A) 0.89 X 10*3/uL (0.90-5.00); Lymphocytes % (A) 14.7 %; MCH 30.5 pg (27.0-32.0); MCV 95.4 fL (80.0-97.0); Mean Platelet Volume 10.9 fL (9.5-12.2); Monocytes # (A) 0.45 X 10*3/uL (0.20-1.00); Monocytes % (A) 7.5 %; Neutrophils # (A) 4.32 X 10*3/uL (1.80-7.70); Neutrophils % (A) 71.5 %; Platelet Count 162 X 10*3/uL (140-440); RBC 2.82 X 10*6/uL (4.10-5.20); WBC 6.04 X 10*3/uL (4.50-10.00)
--- NOTE | 2020-06-28 11:53 | P.PN ---
Subjective This is a 74-year-old female status post laminectomy and decompression L3, 4 secondary to severe symptomatic spinal stenosis with lower extremity rad iculopathy, back pain and weakness. Tolerated procedure well. Patient is borderline hypotensive, attributed to IV pain medication. T-max 100.2, normal WBC. Maintained on IV fluids at 100 MLS per hour. Urine appears concentrated .Maintaining O2 sats in the low 90s on 2 L nasal cannula.Currently up in chair, complaining of spasms. Appears to be mildly impulsive. Denies nausea, vomiting or diarrhea. Denies abdominal pain. Passing flatus.Denies chest pain, palpitations or shortness of breath. Denies lightheadedness, dizziness or focal deficits. 06/26/2020 complained of spasms yesterday and anxiety, placed on Valium as per orthopedic spine. No further Dilaudid, currently maintained on [place] with systolic blood pressure improved. Positive pain, attempted to participate with PT. Passing flatus, denies nausea vomiting or diarrhea. Denies abdominal pain. T-max 99.3, WBC within normal limits ,UA negative, chest x-ray nonacute. Hemoglobin 9.6, platelets 127. Denies lightheadedness, dizziness or focal deficits. Denies chest pain, palpitations or shortness of breath. 06/27/2020: patient is without much c/o today. status post laminectomy and decompression L3, 4 POD #3 SHe has not had a BM since surgery. She denies chest pian, pressure, sob, nauseea or vomitting. She seems a little confused, most likely from her pain meds. We discussed ECF rehab for her, as I doubt she will be ready for home by monday. Tmax 100.5 overnight. Chest xray yesterday clear.Labs essentially normal with the exception of anemia. 06/28/2020: patine is being more active. + BM today.status post laminectomy and decompression L3, 4 POD #4 TMAX is now 98.4 Deg F She denies chest pian, pressure, sob, nauseea or vomitting. Confusion improved, most likely from her pain meds. We discussed ECF rehab and Home with Home PT. She is qucikly improving. Objective - Vital Signs Vital signs: Vital Signs Temp 98.9 F 06/28/20 07:17 Pulse 74 06/28/20 07:17 Resp 18 06/28/20 07:17 BP 125/54 06/28/20 07:17 Pulse Ox 96 06/28/20 07:17 Intake & Output 06/27/20 06/28/20 06/28/20 18:59 06:59 18:59 Other: Voiding Method Toilet # Voids 4 - Exam GENERAL: Alert and oriented 3, lying in bed, no acute distress. Confusion resolved. NECK: No JVD. No thyroid enlargement. No LNs CARDIOVASCULAR: S1, S2 regular. No murmur RESPIRATION: Breath sounds diminished in the bases. No rhonchi, crackles or wheezing. ABDOMEN: Soft, nontender . No guarding. no masses palpable. Positive bowel sounds. LEGS: No edema. no swelling NERVOUS SYSTEM: Cranial N 2-12 grossly normal. Moves all 4 limbs. No focal deficits. Strength and sensation grossly intact while sitting. Skin: Warm and dry,no rash, dressing clean dry and intact. - Labs CBC & Chem 7: 06/26/20 05:45 06/26/20 05:45 Labs: Abnormal Lab Results - Last 24 Hours (Table) 06/27/20 Range/Units 12:40 PTH Intact 74.5 H (14.0-72.0) pg/mL Assessment and Plan (1) S/P lumbar laminectomy Current Visit: Yes Status: Acute Code(s): Z98.890 - OTHER SPECIFIED POSTPROCEDURAL STATES SNOMED Code(s): 37197279643091002 (2) Fever Current Visit: Yes Status: Resolved Code(s): R50.9 - FEVER, UNSPECIFIED SNOMED Code(s): 032621960 (3) Macrocytic anemia Current Visit: Yes Status: Acute Code(s): D53.9 - NUTRITIONAL ANEMIA, UNSPECIFIED SNOMED Code(s): 87191349 (4) COPD (chronic obstructive pulmonary disease) Current Visit: Yes Status: Acute Code(s): J44.9 - CHRONIC OBSTRUCTIVE PULMONARY DISEASE, UNSPECIFIED SNOMED Code(s): 36566987 (5) Hypothyroidism Current Visit: Yes Status: Acute Code(s): E03.9 - HYPOTHYROIDISM, UNSPECIFIED SNOMED Code(s): 33734389 (6) H/O malignant neoplasm of breast Current Visit: Yes Status: Acute Code(s): Z85.3 - PERSONAL HISTORY OF MALIGNANT NEOPLASM OF BREAST SNOMED Code(s): 836647985 (7) H/O partial mastectomy Current Visit: Yes Status: Acute Code(s): Z90.10 - ACQUIRED ABSENCE OF UNSPECIFIED BREAST AND NIPPLE SNOMED Code(s): 439904110 (8) Hyperlipemia Current Visit: Yes Status: Acute Code(s): E78.5 - HYPERLIPIDEMIA, UNSPECIFIED SNOMED Code(s): 23812405 (9) Tobacco abuse Current Visit: Yes Status: Acute Code(s): Z72.0 - TOBACCO USE SNOMED Code(s): 426854222 Plan: repeat labs in am CXR showing chronic changes patient receiveing Rocephin continue nicotine replacment contiue PT/OT plan ECF OR home with Home PT/OT and family for monday reeevalutae in he next 24 hours
[2020-06-28 12:40] LABS: African American GFR (CKD) 99.6 (60.0-200.0); Albumin 3.1 g/dL (3.80-4.90); Albumin/Globulin Ratio 1.82 (1.60-3.17); Anion Gap 6.9 mmol/L (4.00-12.00); BUN/Creat Ratio 14.29 Ratio (12.00-20.00); Calcium 7.7 mg/dL (8.7-10.3); Carbon Dioxide 23.1 mmol/L (21.6-31.8); Globulin 1.7 g/dL (1.6-3.3); Potassium 3.7 mmol/L (3.5-5.5); Total Bilirubin 0.6 mg/dL (0.2-1.2); Total Protein 4.8 g/dL (6.2-8.2)
--- NOTE | 2020-06-28 13:01 | P.DS ---
Providers Date of admission: 06/24/20 06:57 Attending physician: Jennifer Walker Consults: 06/24/20 11:11 Consult Physician Routine Consulting Provider: Juan Jose Ha Consult Reason/Comments: Medical management Do you want consulting provider notified?: Yes Primary care physician: Juan Jose Ha Hospital Course: The patient presented on the day of admission as per their operative note. She underwent minimally invasive decompression fusion L3 4 for her severe spinal stenosis and lower extremity radiculopathy and spinal listhesis. The patient has been making slow but steady progress. Today she feels she is doing much better and feels she has turned the corner to some degree. She had a bowel movement and feels her appetite is improving. Her legs are feeling stronger though she still has some numbness. She is not taking any pain medications she has been controlling her pain with oral medications. Physical Exam The incision site is clean dry and intact. There is no erythema no drainage. There is no purulence no evidence of infection. There is clean without any drainage or erythema. Abdomen soft and nontender. Chest has good excursion with deep inspiration and expiration. The patient has active and passive range of motion intact at the upper and lower extremities. There is no acute change in neurologic status. She has sustained dorsiflexion plantar flexion and EHL intact. Her thighs and calves are soft nontender. Hospital Course Postoperative day #4 status post minimally invasive decompression and fusion for severe spinal stenosis with spondylolisthesis and lower extremity radiculopathy and weakness. Improving well The patient has been making good progress postoperatively. They have completed the prophylactic antibiotics without any signs or symptoms of infection. The patient has been able to advance their diet, and is tolerating diet adequately. The pain was initially controlled with IV medications and is now controlled appropriately with oral medications. The patient has been able to increase their mobilization. The patient has turned a corner to some degree and she has been able to walk into the hallways and she exited stairs with standby assist with physical therapy. She would be able to go home with 24 7 care from her granddaughter who feels able and is happy to help her at home. The patient has progressed appropriately. She is tolerating her diet and has had a good bowel movement and is voiding freely. I think they are in good stable condition for discharge today if she is able to continue her pain control with oral medications. If she still feels unsafe that he is okay to stay overnight for home in the morning but she feels that she can go home today. They will be sent home with appropriate prescriptions. I answered their questions to the best of my ability in a language that they can understand and they are agreeable with the plan. They will follow up as directed in approximately 2 weeks or sooner should have any problems. Patient Condition at Discharge: Fair Plan - Discharge Summary Discharge Rx Participant: Yes New Discharge Prescriptions: New HYDROcodone/APAP 5-325MG [[place] 5] 1 - 2 each PO Q6HR PRN #56 tab PRN Reason: Pain Diazepam [Valium] 2 mg PO TID PRN 7 Days #21 tab PRN Reason: Anxiety No Action Levothyroxine Sodium [Synthroid] 50 mcg PO QAM Acetaminophen Tab [Tylenol Tab] 500 mg PO Q6H Ibandronate Sodium 150 mg PO QMONTHLY Ergocalciferol [Vitamin D2] 50,000 unit PO Q7D Calcium Carbonate [Calcium] 1,200 mg PO DAILY Budesonide-Formot 160-4.5 Mcg [Symbicort 160-4.5 Mcg Inhaler] 2 puff INHALATION BID Carboxymethylcellulose Sodium [Refresh Tears] 1 drop BOTH EYES TID PRN PRN Reason: dry eyes Discharge Medication List Levothyroxine Sodium [Synthroid] 50 mcg PO QAM 02/22/16 [History] Acetaminophen Tab [Tylenol Tab] 500 mg PO Q6H 03/12/20 [History] Ergocalciferol [Vitamin D2] 50,000 unit PO Q7D 03/12/20 [History] Ibandronate Sodium 150 mg PO QMONTHLY 03/12/20 [History] Budesonide-Formot 160-4.5 Mcg [Symbicort 160-4.5 Mcg Inhaler] 2 puff INHALATION BID 06/16/20 [History] Calcium Carbonate [Calcium] 1,200 mg PO DAILY 06/16/20 [History] Carboxymethylcellulose Sodium [Refresh Tears] 1 drop BOTH EYES TID PRN 06/16/20 [History] Diazepam [Valium] 2 mg PO TID PRN 7 Days #21 tab 06/26/20 [Rx] HYDROcodone/APAP 5-325MG [[place] 5] 1 - 2 each PO Q6HR PRN #56 tab 06/26/20 [Rx] Follow up Appointment(s)/Referral(s): Jennifer Walker, [Doctor of Osteopathic Medicine] - 2 Weeks [facility] Visiting Nurse, [NON-STAFF] - As Needed Activity/Diet/Wound Care/Special Instructions: Keep site clean. May shower with waterproof Optifoam intact. Do not soak in a tub. After 72 hours postoperatively, patient may remove dressing and then may shower with area uncovered. May ambulate as tolerated. Avoid heavy or rigorous activity. No repetitive bending twisting or lifting. No overhead work.
[2020-06-28 15:30] VITALS: BP 111/56; PULSE 83; TEMP 98.8
[2020-06-28] MEDS: diazePAM 2 MG TAB PO PRN (17:24)
[2020-07-15] MEDS ORDERED: IBANDRONATE SODIUM 150 MG PO SCH (07:00)
== END 2020-06-28 18:05 | disposition home health service (06) ==
LOC: ORWHC2ENDO 07:26 → EDSTATUS 08:00 → 4SSUR 11:13 → 2ORMAIN 11:13 → UNDODISIN 06-28 18:05 → ORWHC2ENDO 06-28 18:05
PROVIDERS: ATTEND Orthopaedic Surgery Orthopaedic Surgery of the Spine
DX: M47.26 Other spondylosis with radiculopathy, lumbar region (principal); M48.062 Spinal stenosis, lumbar region with neurogenic claudication; M43.16 Spondylolisthesis, lumbar region; M41.35 Thoracogenic scoliosis, thoracolumbar region; M51.46 Schmorl's nodes, lumbar region; I95.9 Hypotension, unspecified; R50.9 Fever, unspecified; K21.9 Gastro-esophageal reflux disease without esophagitis; F17.210 Nicotine dependence, cigarettes, uncomplicated; E78.5 Hyperlipidemia, unspecified; F41.9 Anxiety disorder, unspecified; D53.9 Nutritional anemia, unspecified; J44.9 Chronic obstructive pulmonary disease, unspecified; E03.9 Hypothyroidism, unspecified; K59.00 Constipation, unspecified; J98.4 Other disorders of lung; Z85.3 Personal history of malignant neoplasm of breast; Z90.10 Acquired absence of unspecified breast and nipple; Z90.710 Acquired absence of both cervix and uterus; Z98.890 Other specified postprocedural states; Z90.89 Acquired absence of other organs; E89.0 Postprocedural hypothyroidism; Z98.49 Cataract extraction status, unspecified eye; Z79.890 Hormone replacement therapy; Z82.49 Family history of ischemic heart disease and other diseases of the circulatory system; Z79.51 Long term (current) use of inhaled steroids; Z79.899 Other long term (current) drug therapy; Z88.1 Allergy status to other antibiotic agents; Z88.8 Allergy status to other drugs, medicaments and biological substances; G47.33 Obstructive sleep apnea (adult) (pediatric); Z99.89 Dependence on other enabling machines and devices
CPT/HCPCS: 94640 ×8; 97116 ×3; 97530; 97162; 97535; 97166; 80053; 80048 ×2; 82607; 82746; 85025 ×3; 81001; 83970; 72100; 71045; 71046; 22612; 22853; 20930; 20937; C1713; C1762; J2250; J2710; J0690 ×2; J2405; J2001; J0696 ×2; J3010; J1170 ×3; J2370; J0330; J2704; C9113 ×2; 86850; 86870; 86880; 86900; 86901

== ENCOUNTER → 2020-12-03 | Outpatient (CLI) | payer MEDICARE, OTHER ==
--- NOTE | 2020-12-03 14:13 | CTL ---
EXAMINATION TYPE: CT Low Dose Lung DATE OF EXAM ORDERED: 12/03/2020 HISTORY: . Lung cancer screening CT DLP: [address] CTDI: 1.95 mGy Automated exposure control for dose reduction was used. SCREENING VISIT: COMPARISON: None TECHNIQUE: Low dose computed tomography scan was performed through the chest at 1 mm thick sections a nd reconstructed images in the coronal plane at [address] DIAGNOSTIC QUALITY: Satisfactory FINDINGS: LUNG NODULES: There are multiple subpleural less than 3 mm pulmonary nodules in the right upper lobe likely postinf lammatory. LUNGS: Subsegmental linear changes are seen involving right lung compatible scarring or atelectasis. There i s a bulla in the right lower lobe changes of COPD. Pleural-based thickening involving the right upper lobe is noted with no sizable dose occasions. No pneumothorax or pleural effusion. No consolidative pneumonia. Vascular calcifications are seen with the maximal aortic dimension measuring 3.6 cm involving the asc ending aorta. Heart size upper limits of normal. No significant coronary artery calcification noted a nd there is no pericardial effusion. Hypertrophic and degenerative changes spine. Chronic appearing compression fracture lower thoracic sp ine. There is a small hiatal hernia. IMPRESSION: 1. Pleural thickening with subpleural nodularity right upper lobe likely benign and postinflammatory. CT LUNG RAD AND CT CHEST RECOMMENDATION: Lung-Rad 2 Benign Appearance or Behavior: Continue annual sc reening with LDCT in 12 months. S Modifier (other clinically significant findings): None
== END | disposition home or self-care (01) ==
LOC: RADCTMAIN 13:19
PROVIDERS: ATTEND Family Medicine
DX: R91.1 Solitary pulmonary nodule (principal); Z87.891 Personal history of nicotine dependence
CPT/HCPCS: 71271

== ENCOUNTER → 2021-03-31 | Outpatient (CLI) | payer MEDICARE, OTHER ==
--- NOTE | 2021-04-01 12:39 | MM ---
Reason for exam: screening (asymptomatic). Last mammogram was performed 1 year and 4 months ago. History: Patient is postmenopausal and has history of breast cancer at age 58. Family history of breast cancer in mother at age 85, breast cancer in maternal aunt, and breast cancer in paternal grandmother. Lumpectomy of the right breast, 2004. Radiation therapy of the right breast, 2003. Physical Findings: A clinical breast exam by your physician is recommended on an annual basis and results should be correlated with mammographic findings. MG 3D Screening Mammo W/Cad Bilateral CC and MLO view(s) were taken. Prior study comparison: December 05, 2019, bilateral MG 3d screening mammo w/cad. July 17, 2018, right breast MG 3d work up w/cad RT. The breast tissue is heterogeneously dense. This may lower the sensitivity of mammography. There is no discrete abnormality including area of concern. No significant changes when compared with prior studies. ASSESSMENT: Incomplete: need additional imaging evaluation, BI-RAD 0 RECOMMENDATION: Ultrasound of the right breast. Manage patient on a clinical basis. [facility] will attempt to contact patient to return for ultrasound.
== END | disposition home or self-care (01) ==
LOC: RADMAMWWP 11:21
PROVIDERS: ATTEND Family Medicine
DX: Z12.31 Encounter for screening mammogram for malignant neoplasm of breast (principal)
CPT/HCPCS: 77063; 77067

== ENCOUNTER 2021-11-20 20:12 | Emergency (ER) | payer MEDICARE, OTHER ==
[2021-11-20 20:18] VITALS: RESP 18
[2021-11-20] MEDS ORDERED: Acetaminophen-Codeine 300-30mg TAB PO STA (21:04)
[2021-11-20] MEDS ORDERED: IBUPROFEN 600 MG TAB PO STA (21:04)
--- NOTE | 2021-11-20 21:31 | XR ---
EXAMINATION TYPE: XR knee complete RT DATE OF EXAM: 11/20/2021 COMPARISON: NONE HISTORY: Pain TECHNIQUE: 3 views FINDINGS: There is no sign of fracture nor dislocation. The joint spaces are normal there is evidence of small joint effusion. IMPRESSION: Joint effusion. No fracture seen.
--- NOTE | 2021-11-20 21:44 | ED ---
Extremity Problem HPI - General Chief complaint: Extremity Problem,Nontraumatic Stated complaint: Right knee pain Time Seen by Provider: 11/20/21 20:22 Source: patient Mode of arrival: ambulatory Limitations: no limitations - Related Data Home Medications Medication Instructions Recorded Confirmed Levothyroxine Sodium [Synthroid] 50 mcg PO QAM 02/22/16 06/16/20 Acetaminophen Tab [Tylenol Tab] 500 mg PO Q6H 03/12/20 06/24/20 Ergocalciferol [Vitamin D2] 50,000 unit PO Q7D 03/12/20 06/24/20 Ibandronate Sodium 150 mg PO QMONTHLY 03/12/20 06/24/20 Budesonide-Formot 160-4.5 Mcg 2 puff INHALATION BID 06/16/20 06/24/20 [Symbicort 160-4.5 Mcg Inhaler] Calcium Carbonate [Calcium] 1,200 mg PO DAILY 06/16/20 06/24/20 Carboxymethylcellulose Sodium 1 drop BOTH EYES TID PRN 06/16/20 06/24/20 [Refresh Tears] Previous Rx's Medication Instructions Recorded HYDROcodone/APAP 5-325MG [Nunez 5] 1 - 2 each PO Q6HR PRN #56 tab 06/26/20 diazePAM [Valium] 2 mg PO TID PRN 7 Days #21 tab 06/26/20 Allergies Allergy/AdvReac Type Severity Reaction Status Date / Time carbamazepine [From Tegretol] AdvReac Swelling Verified 11/20/21 20:17 cephalexin AdvReac yeast Verified 11/20/21 20:17 infecton pregabalin AdvReac "made me Verified 11/20/21 20:17 feel like I was drunk" nicotin patches Allergy skin Uncoded 06/24/20 07:30 irritation Review of Systems ROS Statement: Those systems with pertinent positive or pertinent negative responses have been documented in the HPI. ROS Other: All systems not noted in ROS Statement are negative. Past Medical History Past Medical History: Cancer, COPD, Hyperlipidemia, Thyroid Disorder Additional Past Medical History / Comment(s): back pain, breast cancer History of Any Multi-Drug Resistant Organisms: None Reported Past Surgical History: Hysterectomy Additional Past Surgical History / Comment(s): THYROIDECTOMY, RT partial mastectomy, BILAT CATARACT SX, Past Anesthesia/Blood Transfusion Reactions: No Reported Reaction Additional Past Anesthesia/Blood Transfusion Reaction / Comment(s): states "had bleeding with hysterectomy surgery but does not recall any blood transfusion" Past Psychological History: No Psychological Hx Reported Smoking Status: Former smoker Past Alcohol Use History: None Reported Past Drug Use History: None Reported - Past Family History Mother Family Medical History: Cancer General Exam Limitations: no limitations Course Vital Signs 11/20/21 20:15 Temperature 98.6 F Pulse Rate 90 Respiratory 18 Rate Blood Pressure 119/70 O2 Sat by Pulse 95 Oximetry Disposition Clinical Impression: Effusion, right knee, Right knee pain Disposition: HOME SELF-CARE Condition: Good Instructions (If sedation given, give patient instructions): Swollen Knee Joint (ED) Is patient prescribed a controlled substance at d/c from ED?: No Referrals: Juan Jose Ha MD [Primary Care Provider] - 1-2 days Driss Terrazas MD [STAFF PHYSICIAN] - 1-2 days
[2021-11-20] MEDS ORDERED: traMADol 50 MG STARTER PACK 3 TAB BTL PO STA (21:50)
[2021-11-20] MEDS ORDERED: IBUPROFEN 600 MG STARTER PACK 4 TAB BTL PO STA (21:50)
[2021-11-20] MEDS ORDERED: ACET/COD 300 MG/30 MG STARTER PACK 6 TAB BTL PO STA (21:50)
[2021-11-20 22:31] VITALS: BP 122/76; PULSE 72; TEMP 97.6
== END 2021-11-20 22:31 | disposition home or self-care (01) ==
LOC: EC 20:12
DX: M25.461 Effusion, right knee (principal); M25.561 Pain in right knee; J44.9 Chronic obstructive pulmonary disease, unspecified; E78.5 Hyperlipidemia, unspecified; E07.9 Disorder of thyroid, unspecified; Z87.891 Personal history of nicotine dependence; Z88.8 Allergy status to other drugs, medicaments and biological substances; Z88.1 Allergy status to other antibiotic agents; Z88.4 Allergy status to anesthetic agent; Z79.899 Other long term (current) drug therapy
CPT/HCPCS: 99283

== ENCOUNTER → 2022-01-31 | Outpatient (CLI) | payer MEDICARE, OTHER ==
[2022-01-31 10:33] LABS: Basophils # (A) 0.06 X 10*3/uL (0.00-0.10); Basophils % (A) 1.3 %; Eosinophils # (A) 0.21 X 10*3/uL (0.04-0.35); Eosinophils % (A) 4.5 %; HCT 40.2 % (37.2-46.3); HGB 12.4 g/dL (12.0-15.0); Immature Grans, Automated 0.4 %; Lymphocytes # (A) 1.71 X 10*3/uL (0.90-5.00); Lymphocytes % (A) 36.5 %; MCHC 30.8 g/dL (32.0-37.0); MCV 94.1 fL (80.0-97.0); Mean Platelet Volume 10.7 fL (9.5-12.2); Monocytes # (A) 0.45 X 10*3/uL (0.20-1.00); Monocytes % (A) 9.6 %; NRBC Per 100 WBC 0 /100 WBCS (0.0-0.0); Neutrophils # (A) 2.24 X 10*3/uL (1.80-7.70); Neutrophils % (A) 47.7 %; Platelet Count 203 X 10*3/uL (140-440); RBC 4.27 X 10*6/uL (4.10-5.20); RDW 12.6 % (11.5-14.5); WBC 4.69 X 10*3/uL (4.50-10.00)
[2022-01-31 10:51] LABS: ALT 23 U/L (8-44); AST 24 U/L (13-35); Albumin/Globulin Ratio 1.58 (1.60-3.17); Alkaline Phosphatase 62 U/L (41-126); BUN/Creat Ratio 20.81 Ratio (12.00-20.00); Blood Urea Nitrogen 20.5 mg/dL (9.0-27.0); Calcium 9.1 mg/dL (8.7-10.3); Carbon Dioxide 25.6 mmol/L (20.0-27.5); Chloride 106 mmol/L (96-109); Chol/HDL Ratio 3.78 Ratio; Globulin 2.6 g/dL (1.6-3.3); Glucose 90 mg/dL (70-110); LDL Cholesterol,Calculated 145.3 mg/dL (0.0-131.0); Non-African American GFR(CKD) 56.1 (60.0-200.0); Sodium 141 mmol/L (135-145); Total Protein 6.6 g/dL (6.2-8.2); VLDL Calculation 19.38 mg/dL (5.00-40.00)
== END | disposition home or self-care (01) ==
LOC: LABWHC1 08:15
PROVIDERS: ATTEND Family Medicine
DX: Z13.220 Encounter for screening for lipoid disorders (principal); M17.11 Unilateral primary osteoarthritis, right knee; E03.9 Hypothyroidism, unspecified; M81.0 Age-related osteoporosis without current pathological fracture; Z23 Encounter for immunization; J44.9 Chronic obstructive pulmonary disease, unspecified
CPT/HCPCS: 36415; 80053; 80061; 83721; 84443; 85025

== ENCOUNTER → 2022-02-04 | Outpatient (CLI) | payer MEDICARE, OTHER ==
--- NOTE | 2022-02-04 16:14 | BD ---
EXAMINATION TYPE: Axial Bone Density DATE OF EXAM: 02/04/2022 COMPARISON: 02.05.2016 CLINICAL HISTORY: 76 years year old Female. ICD-10 CODE: Z78.0 Post Menopausal HRT Height: 63 Weight: 161 FRAX RISK QUESTIONS: Glucocorticoids (More than 3mos): YES (Ex: prednisone, prednisolone, methylprednisolone, dexamethasone, and hydrocortisone). History of Fracture in Adulthood: YES Secondary Osteoporosis: YES 3. Menopause before 45: YES Current Tobacco Use: QUIT 2017 RISK FACTORS HISTORY OF: KNEES, TOES AND MULTIPLE FXS SINCE AGE OF 40s Surgery to Spine...IN SPINE RODS AND SCREWS YRS AGO Family History of Osteoporosis: YES Postmenopausal woman: YES, AT 44 YRS OLD Lost more than 2 inches in height since high school: YES Frequent falls: UNSTEADY Hyperparathyroidism: NO Adrenal Insufficiency: NO MEDICATIONS: Prednisone or other steroids: COPD INHALERS, PREDNISONE FOR BACK AND KNEES, INJECTIONS INTO SPINE AND KNEES Thyroid Medications: YES, FOR MANY YRS, SYNTHROID, Osteoporosis Medications: YES, FOSAMAX ON AND OFF FOR YRS, LAST TAKEN JULY 2021 Additional Medications: PAIN MEDS, HX OF RADIATION, AND CHEMO, VIT D3 Additional History: RT BREAST CA, RADIATION, CHEMO, EXAM MEASUREMENTS: Bone mineral densitometry was performed using the [employer] System. SURG WITH HARDWARE....SPINE NOT SCANNED Bone mineral density about the R hip (g/cm2): 0.716 Bone mineral density about the L hip (g/cm2): 0.710 T Score values are as follows: -----R Neck: -2.6 -----L Neck: -2.7 -----R Total: -2.3 -----L Total: -2.4 Bone mineral density has: Decreased -3.8% since study of: 02.05.2016 Bone mineral density about the L Wrist (g/cm2): 0.516 T Score values are as follows: -----Dist. R+U: -1.0 -----Prox. R+U: -1.2 -----Radius total: -2.2 Bone mineral density FIRST SCAN OF LT WRIST/FOREARM FRAX%s: The graph provided illustrates a 64.5% chance for a major osteoporotic fx and a 50.8% chance for the hips probability for fx in 10 years time. IMPRESSION: Osteoporosis (T Score less than -2.5). There is increased fracture risk and therapy is usually indicated based on age. Re-Screen 1-2 years. NOTE: T-SCORE=SD OF THE YOUNG ADULT MEAN.
== END | disposition home or self-care (01) ==
LOC: RADBDWWP 13:16
PROVIDERS: ATTEND Family Medicine
DX: Z78.0 Asymptomatic menopausal state (principal)
CPT/HCPCS: 77080

== ENCOUNTER → 2022-04-01 | Outpatient (CLI) | payer MEDICARE, OTHER ==
--- NOTE | 2022-04-04 10:34 | MM ---
Reason for Exam: Screening (asymptomatic). Last screening mammogram was performed 12 month(s) ago. Patient History: Menarche at age 12. First Full-Term at age 22. Hysterectomy at age 66. Postmenopausal. Breast cancer, age 58. Previous chest radiation therapy at age 58. 2003, Lumpectomy on the Right side. 2003, Radiation Therapy on the right side. Paternal grandmother had breast cancer. Maternal aunt had breast cancer. Mother had breast cancer, age 85. Prior Study Comparison: 07/17/2018 Right Diagnostic Mammogram, [facility]. 12/05/2019 Bilateral Screening Mammogram, [facility]. 03/31/2021 Bilateral Screening Mammogram, [facility]. Tissue Density: The breast tissue is heterogeneously dense. This may lower the sensitivity of mammography. Findings: Analyzed By CAD. There is no suspicious group of microcalcifications or new suspicious mass in either breast. Overall Assessment: Negative, BI-RAD 1 Management: Screening Mammogram of both breasts in 1 year. A clinical breast exam by your physician is recommended on an annual basis and results should be correlated with mammographic findings. [facility] will attempt to contact patient to return for supplemental views and ultrasound if indicated. [facility], 04/01/2022 10:22 AM, [id number], [id number], MG 3D screening mammo w/cad. Electronically signed and approved by: Trip Villanueva DO
== END | disposition home or self-care (01) ==
LOC: RADMAMWWP 10:00
PROVIDERS: ATTEND Family Medicine
DX: Z12.31 Encounter for screening mammogram for malignant neoplasm of breast (principal); Z78.0 Asymptomatic menopausal state; Z80.3 Family history of malignant neoplasm of breast; Z92.3 Personal history of irradiation
CPT/HCPCS: 77063; 77067

== ENCOUNTER → 2023-02-27 | Outpatient (CLI) | payer MEDICARE, OTHER ==
[2023-02-27 15:31] LABS: ALT 16 U/L (8-44); AST 20 U/L (13-35); Albumin 4.3 d/dL (3.8-4.9); Albumin/Globulin Ratio 1.79 Ratio (1.60-3.17); Alkaline Phosphatase 63 U/L (41-126); BUN/Creat Ratio 19.56 Ratio (12.00-20.00); Blood Urea Nitrogen 17.6 mg/dL (9.0-27.0); Calcium 9.7 mg/dL (8.7-10.3); Carbon Dioxide 26.8 mmol/L (21.6-31.8); Chloride 105 mmol/L (96-109); Chol/HDL Ratio 3.24 Ratio; Globulin 2.4 d/dL (1.6-3.3); Glucose 94 mg/dL (70-110); LDL Cholesterol,Calculated 136.6 mg/dL (0.0-131.0); Potassium 4.4 mmol/L (3.5-5.5); Sodium 142 mmol/L (135-145); Total Bilirubin 0.6 mg/dL (0.3-1.2); Total Protein 6.7 d/dL (6.2-8.2); VLDL Calculation 19.04 mg/dL (5.00-40.00)
== END | disposition home or self-care (01) ==
LOC: LABWHC1 07:51
PROVIDERS: ATTEND Family Medicine
DX: Z00.00 Encounter for general adult medical examination without abnormal findings (principal); Z13.220 Encounter for screening for lipoid disorders; M81.0 Age-related osteoporosis without current pathological fracture; M19.90 Unspecified osteoarthritis, unspecified site; E03.9 Hypothyroidism, unspecified; J45.20 Mild intermittent asthma, uncomplicated; R25.2 Cramp and spasm
CPT/HCPCS: 36415; 80053; 80061; 83735; 84443

== ENCOUNTER → 2023-04-03 | Outpatient (CLI) | payer MEDICARE, OTHER ==
--- NOTE | 2023-04-04 21:15 | MM ---
Reason for Exam: Screening (asymptomatic). Last screening mammogram was performed 12 month(s) ago. Patient History: Menarche at age 12. First Full-Term at age 22. Hysterectomy at age 66. Postmenopausal. Breast cancer, right, age 58. Previous chest radiation therapy at age 58. 2003, Lumpectomy on the Right side. 2003, Radiation Therapy on the right side. Paternal grandmother had breast cancer. Maternal aunt had breast cancer. Paternal aunt had breast cancer, bilateral, age 80. Mother had breast cancer, age 85. Sister had breast cancer at or over age 50. Prior Study Comparison: 02/05/2016 Bilateral Screening Mammogram, [facility]. 06/13/2017 Bilateral Screening Mammogram, [facility]. 07/11/2018 Bilateral Screening Mammogram, [facility]. 07/17/2018 Right Diagnostic Mammogram, [facility]. 12/05/2019 Bilateral Screening Mammogram, [facility]. 03/31/2021 Bilateral Screening Mammogram, [facility]. 04/01/2022 Bilateral MG 3D screening mammo w/cad, [facility]. Tissue Density: The breast tissue is heterogeneously dense. This may lower the sensitivity of mammography. Findings: Analyzed By CAD. Questionable area of distortion in the lateral aspect of the left breast on the CC view anterior to middle depth. No clear correlate on the MLO view. Findings may represent superimposition shadow but further evaluation is recommended. Further ultrasound evaluation at the patient's site of axillary lumps. Postsurgical and posttreatment changes right breast. Otherwise, no significant change. Overall Assessment: Incomplete: need additional imaging evaluation, BI-RAD 0 Management: Special View Mammogram of the left breast. Diagnostic Breast Ultrasound of both breasts. Targeted ultrasound in the right axilla corresponding to the site of patient's lumps. Patient with history of prior breast cancer. Additional views left breast to include spot 3-D CC, 3-D CC rolled medial, and 3-D ML views. Left breast ultrasound if any persisting abnormality. [facility] will attempt to contact patient to return for supplemental views and ultrasound if indicated. Electronically signed and approved by: Rebekah Soliman M.D. Radiologist
== END | disposition home or self-care (01) ==
LOC: RADMAMWWP 12:24
PROVIDERS: ATTEND Family Medicine
DX: Z12.31 Encounter for screening mammogram for malignant neoplasm of breast (principal); Z78.0 Asymptomatic menopausal state; Z80.3 Family history of malignant neoplasm of breast
CPT/HCPCS: 77063; 77067

== ENCOUNTER → 2023-04-20 | Outpatient (CLI) | payer MEDICARE, OTHER ==
--- NOTE | 2023-04-20 09:36 | USB ---
Reason for Exam: Additional evaluation requested from abnormal screening. Patient History: Menarche at age 12. First Full-Term at age 22. Hysterectomy at age 66. Postmenopausal. Breast cancer, right, age 58. Previous chest radiation therapy at age 58. 2003, Lumpectomy on the Right side. 2003, Radiation Therapy on the right side. Paternal grandmother had breast cancer. Maternal aunt had breast cancer. Paternal aunt had breast cancer, bilateral, age 80. Mother had breast cancer, age 85. Sister had breast cancer at or over age 50. Technique: Method: Targeted. Prior Study Comparison: 03/31/2021 Bilateral Screening Mammogram, [facility]. 04/01/2022 Bilateral MG 3D screening mammo w/cad, [facility]. 04/03/2023 Bilateral MG 3D screening mammo w/cad, [facility]. Findings: The upper outer quadrant of the left breast, the axilla of both breasts and the retroareolar of both breasts were scanned. Targeted ultrasound right breast at the axilla corresponding to the patient's area of concern, lumps. No solid or cystic lesion or axillary lymphadenopathy. Clinical follow-up is recommended here. Targeted ultrasound left breast upper outer quadrant including the subareolar region and axilla. There is a vague to small to characterize 4 x 3 x 2 mm hypoechoic lesion at the 1:00 position, 1 cm from the nipple. This can be reassessed in 6 months given the patient's personal history of breast cancer. No other solid or cystic lesion or axillary lymphadenopathy. Overall Assessment: Probably benign, BI-RAD 3 Management: Diagnostic Mammogram of the left breast in 6 months. Diagnostic Breast Ultrasound of the left breast in 6 months. Also, further clinical management of patient's right axillary lumps. No imaging correlate by mammogram or ultrasound. A clinical breast exam by your physician is recommended on an annual basis and results should be correlated with mammographic findings. This exam should not preclude additional follow-up of suspicious palpable abnormalities. Results were given to the patient verbally at the time of exam. Electronically signed and approved by: Rebekah Soliman M.D. Radiologist
--- NOTE | 2023-04-20 12:47 | MM ---
Reason for Exam: Additional evaluation requested from abnormal screening. Last screening mammogram was performed less than 1 month ago. Patient History: Menarche at age 12. First Full-Term at age 22. Hysterectomy at age 66. Postmenopausal. Breast cancer, right, age 58. Previous chest radiation therapy at age 58. 2003, Lumpectomy on the Right side. 2003, Radiation Therapy on the right side. Paternal grandmother had breast cancer. Maternal aunt had breast cancer. Paternal aunt had breast cancer, bilateral, age 80. Mother had breast cancer, age 85. Sister had breast cancer at or over age 50. Prior Study Comparison: 03/13/2009 Screening Mammogram, [facility]. 09/22/2010 Screening Mammogram, [facility]. 03/06/2012 Bilateral Diagnostic Mammogram, [facility]. 04/12/2013 Bilateral Diagnostic Mammogram, [facility]. 02/05/2016 Bilateral Screening Mammogram, [facility]. 06/13/2017 Bilateral Screening Mammogram, [facility]. 07/11/2018 Bilateral Screening Mammogram, [facility]. 07/17/2018 Right Diagnostic Mammogram, [facility]. 12/05/2019 Bilateral Screening Mammogram, [facility]. 03/31/2021 Bilateral Screening Mammogram, [facility]. 04/01/2022 Bilateral MG 3D screening mammo w/cad, [facility]. 04/03/2023 Bilateral MG 3D screening mammo w/cad, [facility]. Tissue Density: Left: The breast tissue is heterogeneously dense. This may lower the sensitivity of mammography. Findings: Analyzed By CAD. The lateral asymmetric density appears to disperse on additional views. Further ultrasound evaluation recommended. Ultrasound could also assess the patient reported palpable right axillary lumps. Overall Assessment: Incomplete: need additional imaging evaluation, BI-RAD 0 Management: Diagnostic Breast Ultrasound of both breasts. Upper outer quadrant left breast and area of concern right axilla. Electronically signed and approved by: Rebekah Soliman M.D. Radiologist
== END | disposition home or self-care (01) ==
LOC: RADMAMWWP 08:17
PROVIDERS: ATTEND Family Medicine
DX: R92.332 Mammographic heterogeneous density, left breast (principal); N64.89 Other specified disorders of breast; Z80.3 Family history of malignant neoplasm of breast; Z78.0 Asymptomatic menopausal state; Z85.3 Personal history of malignant neoplasm of breast
CPT/HCPCS: 77065; 76642; G0279; 77061

== ENCOUNTER → 2023-05-19 | Outpatient (CLI) | payer MEDICARE, OTHER ==
[2023-05-19 14:26] VITALS: BP 133/74; PULSE 77; RESP 18; TEMP 98.2
--- NOTE | 2023-05-19 14:39 | P.GSHP ---
History of Present Illness H&P Date: 05/19/23 Chief Complaint: history of breast cancer Aleja is a 77 year old female seen in consultation for Dr. Ha. She had a bilateral mammogram on 04-03-23 followed by a left breast diagnostic mammogram and ultrasound on 04-20-23. These were felt to be BIRAD 3 and repeat left breast mammogram and ultrasound in 6 months recommended. She was diagnosed with right breast cancer in 2003, she was treated in [place]; she had a lumpectomy and radiation. She did not have an chemotherapy. She did not have any hormone therapy. She did not have follow up. Bilateral breast biopsies in the past the rest have been benign. Caffiene: 2 cups/day nicotine: on E cigarette; used since 2018 when lost 43 year old son chocolate: daily BCP: about 10 years Family History: maternal grandmother: ? type paternal aunt: bilat breast recurrent, brain mets mother: breast cancer sister: breast cancer bilateral Hormonal History: menarche: 14 , breast fed: no, age at first : 22 menopause: 51 Surgical History: cataract bilateral thyroid right breast lumpectomy tubaligation hysterectomy (left ovaries) foot surgery back surgery Medical History: none Social History: nicotine: e cigarettes alcohol: none drugs: none - Constitutional Constitutional: Denies chills, Denies fever - EENT Eyes: bilateral as per HPI Ears: bilateral: tinnitus Ears, nose, mouth and throat: Denies headache, Denies sore throat - Breasts Breasts: bilateral: as per HPI - Cardiovascular Cardiovascular: Denies chest pain, Denies shortness of breath - Respiratory Comment: inhaler/ ? COPD Respiratory: Denies cough, Denies 7 - Gastrointestinal Gastrointestinal: Denies abdominal pain, Denies diarrhea, Denies nausea, Denies vomiting - Genitourinary (Female) Genitourinary: Denies dysuria, Denies hematuria - Menstruation Menstruation: Reports postmenopausal - Musculoskeletal Musculoskeletal: Reports myalgias - Integumentary Comment: dry skin - Neurological Neurological: Denies numbness, Denies weakness - Psychiatric Psychiatric: Denies anxiety, Denies depression - Endocrine Endocrine: Reports weight change - Hematologic/Lymphatic Comment: none - Allergic/Immunologic Allergic/Immunologic: Reports as per HPI Past Medical History Past Medical History: Cancer, COPD, Hyperlipidemia, Thyroid Disorder Additional Past Medical History / Comment(s): back pain, breast cancer History of Any Multi-Drug Resistant Organisms: None Reported Past Surgical History: Hysterectomy Additional Past Surgical History / Comment(s): THYROIDECTOMY, RT partial mastectomy, BILAT CATARACT SX, Past Anesthesia/Blood Transfusion Reactions: No Reported Reaction Additional Past Anesthesia/Blood Transfusion Reaction / Comment(s): states "had bleeding with hysterectomy surgery but does not recall any blood transfusion" Past Psychological History: No Psychological Hx Reported Smoking Status: Former smoker Past Alcohol Use History: None Reported Additional Past Alcohol Use History / Comment(s): SMOKES 1 PACK A WEEK SINCE AGE 19 Past Drug Use History: None Reported - Past Family History Mother Family Medical History: Cancer Medications and Allergies Home Medications Medication Instructions Recorded Confirmed Type Levothyroxine Sodium [Synthroid] 50 mcg PO QAM 02/22/16 05/19/23 History Acetaminophen Tab [Tylenol Tab] 500 mg PO Q6H 03/12/20 05/19/23 History Ergocalciferol [Vitamin D2] 50,000 unit PO Q7D 03/12/20 05/19/23 History Budesonide-Formot 160-4.5 Mcg 2 puff INHALATION BID 06/16/20 05/19/23 History [Symbicort 160-4.5 Mcg Inhaler] Carboxymethylcellulose Sodium 1 drop BOTH EYES TID PRN 06/16/20 05/19/23 History [Refresh Tears] Celecoxib [CeleBREX] 50 mg PO DAILY 05/19/23 05/19/23 History Magnesium 200 mg PO DAILY 05/19/23 05/19/23 History Allergies Allergy/AdvReac Type Severity Reaction Status Date / Time carbamazepine [From Tegretol] AdvReac Swelling Verified 05/19/23 13:53 cephalexin AdvReac yeast Verified 05/19/23 13:53 infecton pregabalin AdvReac "made me Verified 05/19/23 13:53 feel like I was drunk" nicotin patches Allergy skin Uncoded 05/19/23 13:53 irritation Surgical - Exam Vital Signs Temp Pulse Resp BP Pulse Ox 98.2 F 77 18 133/74 97 05/19/23 13:56 05/19/23 13:56 05/19/23 13:56 05/19/23 13:56 05/19/23 13:56 - General moderate distress - Eyes normal ocular movement - Neck trachea midline - Respiratory bilateral: dullness - Cardiovascular Rhythm: regular Heart Sounds: normal: S1, S2 - Integumentary normal turgor - Neurologic no disoriented, no combative - Musculoskeletal difficulty with walking after back surgery normal posture - Psychiatric oriented to time, oriented to person, oriented to place, speech is normal, memory intact Breast Exam: BRA: 40C Inspection: bilateral grade 3 ptosis Patient: Right breast: Multi positional exam postoperative changes, postradiation changes, no dominant masses or nodules of concern, right breast is smaller than the left breast Right axilla: No adenopathy of concern Left breast: Multi positional exam no dominant masses or nodules of concern, Left axilla: No adenopathy of concern Results Mammogram and ultrasound reviewed Assessment and Plan Assessment: Impression: Patient status post right breast lumpectomy/radiation therapy in [place] for a small breast cancer did not have any chemo or hormone therapy this was done in 2003 Recent left breast mammogram and ultrasound in March 2023 resulting in recommendation for repeat left breast mammogram and ultrasound in 6 months Fibrocystic breast changes Asymmetry of the breast Plan: Repeat left breast mammogram and ultrasound in 6 months with examination at that time Bilateral mammogram in 1 year Obtain records from [place] regarding right breast cancer Consider left breast reduction mammoplasty secondary to asymmetry CC: Dr. Ha
== END ==
LOC: WWCWWP 13:44
PROVIDERS: ATTEND Surgery
DX: N60.12 Diffuse cystic mastopathy of left breast (principal); N64.89 Other specified disorders of breast; E07.9 Disorder of thyroid, unspecified; E78.5 Hyperlipidemia, unspecified; J44.9 Chronic obstructive pulmonary disease, unspecified; F17.200 Nicotine dependence, unspecified, uncomplicated; Z85.3 Personal history of malignant neoplasm of breast; Z80.3 Family history of malignant neoplasm of breast; Z79.51 Long term (current) use of inhaled steroids; Z79.890 Hormone replacement therapy; Z88.1 Allergy status to other antibiotic agents; Z88.8 Allergy status to other drugs, medicaments and biological substances

== ENCOUNTER → 2023-10-27 | Outpatient (CLI) | payer MEDICARE, OTHER ==
--- NOTE | 2023-10-27 13:13 | MM ---
Reason for Exam: Follow-up at short interval from prior study. Last screening mammogram was performed 7 month(s) ago. Patient History: Menarche at age 12. First Full-Term at age 22. Hysterectomy at age 66. Postmenopausal. Breast cancer, right, age 58. Previous chest radiation therapy at age 58. 2003, Lumpectomy on the Right side. 2003, Radiation Therapy on the right side. Paternal grandmother had breast cancer. Maternal aunt had breast cancer. Paternal aunt had breast cancer, bilateral, age 80. Mother had breast cancer, age 85. Sister had breast cancer at or over age 50. Prior Study Comparison: 04/01/2022 Bilateral MG 3D screening mammo w/cad, [facility]. 04/03/2023 Bilateral MG 3D screening mammo w/cad, [facility]. 04/20/2023 Left MG 3D work up w/cad , [facility]. Tissue Density: Left: There are scattered areas of fibroglandular density. Findings: Analyzed By CAD. The previous questioned distortion along the lateral aspect on the CC view is no longer seen. Asymmetric density medially at anterior to middle depth does not persist on spot 3-D compatible with superimposition shadow. No significant change. Overall Assessment: Incomplete: need additional imaging evaluation, BI-RAD 0 Management: Diagnostic Breast Ultrasound of the left breast. Electronically signed and approved by: Rebekah Soliman M.D. Radiologist
--- NOTE | 2023-10-27 13:42 | USB ---
Reason for Exam: Follow-up at short interval from prior study. Patient History: Menarche at age 12. First Full-Term at age 22. Hysterectomy at age 66. Postmenopausal. Breast cancer, right, age 58. Previous chest radiation therapy at age 58. 2003, Lumpectomy on the Right side. 2003, Radiation Therapy on the right side. Paternal grandmother had breast cancer. Maternal aunt had breast cancer. Paternal aunt had breast cancer, bilateral, age 80. Mother had breast cancer, age 85. Sister had breast cancer at or over age 50. Technique: Method: Targeted. Prior Study Comparison: 04/01/2022 Bilateral MG 3D screening mammo w/cad, [facility]. 04/03/2023 Bilateral MG 3D screening mammo w/cad, [facility]. 04/20/2023 Left MG 3D work up w/cad , [facility]. Findings: The upper outer quadrant of the left breast, the axilla of the left breast and the retroareolar of the left breast were scanned. Targeted ultrasound upper outer quadrant 12:00 to 3:00 including scanning of the subareolar region and axilla. No solid or cystic lesion. The previously seen vague 3 mm area at the 1:00 position is no longer identified. Overall Assessment: Benign, BI-RAD 2 Management: Screening Mammogram of both breasts in 6 months. A clinical breast exam by your physician is recommended on an annual basis and results should be correlated with mammographic findings. This exam should not preclude additional follow-up of suspicious. Electronically signed and approved by: Rebekah Soliman M.D. Radiologist
== END | disposition home or self-care (01) ==
LOC: RADMAMWWP 12:36
PROVIDERS: ATTEND Family Medicine
DX: R92.8 Other abnormal and inconclusive findings on diagnostic imaging of breast (principal); Z90.11 Acquired absence of right breast and nipple; R92.322 Mammographic fibroglandular density, left breast; C50.911 Malignant neoplasm of unspecified site of right female breast; C50.912 Malignant neoplasm of unspecified site of left female breast; Z78.0 Asymptomatic menopausal state; Z80.3 Family history of malignant neoplasm of breast
CPT/HCPCS: 77061; 77065

== ENCOUNTER → 2024-02-26 | Outpatient (CLI) | payer MEDICARE, OTHER ==
--- NOTE | 2024-02-26 12:54 | MR ---
EXAMINATION TYPE: MR brain wo con DATE OF EXAM: 02/26/2024 12:11 PM COMPARISON: None. CLINICAL INDICATION: Female, 78 years old with history of R41.3 MEMORY LOSS, Memory loss. TECHNIQUE: Multiplanar, multiecho imaging on a 3.0 Tara magnet is performed through the brain. Stud y is performed within 24 hours of arrival to the hospital.Multiplanar, multiecho imaging on a 3.0 Elizabeth la magnet is performed through the knee. IV Contrast: cc (None if empty) FINDINGS: The craniovertebral junction is normal. The pituitary is normal. Diffusion-weighted imaging is performed. No abnormal hyperintensity is present to suggest an acute i ntracranial infarct or acute ischemic change. Right ventricular white matter hypodensity is present, likely on the basis of chronic white matter is chemic change. There is a punctate hyperintensity within the anterior left radiata measuring 0.4 cm Ventricles and sulci are mild prominent for the patient age. IMPRESSION: 1. Age-related atrophy with mild chronic appearing periventricular white matter ischemic type changes not significantly out of proportion for the patient's age. [facility], , 02/26/2024 12:52 PM
== END | disposition home or self-care (01) ==
LOC: RADMRIMAIN 11:04
PROVIDERS: ATTEND Psychiatry & Neurology Neurology
DX: I67.82 Cerebral ischemia (principal); R41.3 Other amnesia
CPT/HCPCS: 70551

== ENCOUNTER → 2024-03-01 | Outpatient (CLI) | payer MEDICARE, OTHER ==
--- NOTE | 2024-03-02 17:59 | BD ---
EXAMINATION TYPE: Axial Bone Density DATE OF EXAM: 03/01/2024 CLINICAL HISTORY: 78 years old Female. ICD-10 CODE: M81.0 osteoporosis; Z78.0 post menopausal , Aneudy tional History: Height: 63.5 in Weight: 157 lbs RISK FACTORS Surgery to Spine: l spine surgery 2020 MEDICATIONS: Thyroid Medications: yes Which medication: Levothyroxine How Lon+ years Osteoporosis Medications: not now Which medication: Fosamax How Long: off and on stopped taking in 2021 EXAM MEASUREMENTS: Bone mineral densitometry was performed using the [employer] System. Bone mineral density about the R hip (g/cm2): 0.658 Bone mineral density about the L hip (g/cm2): 0.639 T Score values are as follows: -----R Neck: -2.5 -----L Neck: -3.6 -----R Total: -2.8 -----L Total: -2.9 Z Score values are as follows: -----R Neck: -0.6 -----L Neck: -1.7 -----R Total: -1.1 -----L Total: -1.2 Bone mineral density has: Decreased -9.0% since study of: 02/04/2022 Bone mineral density about the L Wrist (g/cm2): 0.546 T Score values are as follows: -----Dist. R+U: -2.1 -----Prox. R+U: -1.4 -----Radius total: -2.1 Z Score values are as follows: -----Dist. R+U: 0.4 -----Prox. R+U: 1.1 -----Radius total: 0.4 Bone mineral density has: Decreased -2.2% since study of: 02/04/2022 FRAX%s: The graph provided illustrates a 30.4% chance for a major osteoporotic fx and a 14.8% chance for the hips probability for fx in 10 years time. IMPRESSION: Osteopenia (T Score between -2.5 and -1). There is slightly increased risk of fracture and the patient may be considered for treatment. Re-Screen 2-5 years. NOTE: T-SCORE=SD OF THE YOUNG ADULT MEAN. [facility], , 03/02/2024 5:56 PM
== END | disposition home or self-care (01) ==
LOC: RADBDWWP 15:00
PROVIDERS: ATTEND Family Medicine
DX: M81.0 Age-related osteoporosis without current pathological fracture (principal)
CPT/HCPCS: 77080

== ENCOUNTER → 2024-03-05 | Outpatient (CLI) | payer MEDICARE, OTHER ==
--- NOTE | 2024-03-05 13:27 | CTL ---
EXAMINATION TYPE: CT Low Dose Lung DATE OF EXAM ORDERED: 03/05/2024 COMPARISON: CT Low Dose Lung 12/03/2020 CLINICAL INDICATION: Female, 78 years old with history of Z87.891 personal hx tobacco use; PHH, perso nal tobacco use, Lung cancer screening, History of Smoking/tobacco use. TECHNIQUE: Low dose computed tomography scan was performed through the chest at 1 mm thick sections a nd reconstructed images in multiple planes at 1 mm and [address] DLP: 76.[address] CTDI: 2.4 mGy Automated exposure control for dose reduction was used. CT DIAGNOSTIC QUALITY: Satisfactory FINDINGS: Nodules: No clinically significant pulmonary nodule. LUNGS: COPD: Severity: Mild with a bulla within the right lower lobe redemonstrated. Fibrosis: Severity: Mild similar subpleural right anterior upper lobe and right middle lobe reticular scarring. Lymph nodes: None Other findings: None RIGHT PLEURAL SPACE: Effusion: None Calcification: None Thickening: None Pneumothorax: None LEFT PLEURAL SPACE: Effusion: None Calcification: None Thickening: None Pneumothorax: None HEART: Heart Size: Normal Coronary Calcification: None Pericardial Effusion: None OTHER FINDINGS: Upper abdomen: Small hiatal hernia. Bony thorax: Multilevel degenerative disc disease. Increased upper thoracic kyphosis. Prominent Schmo rl's node involving the inferior endplate of the T12 vertebral body. Supraclavicular region: None Other: None IMPRESSION: No clinically significant pulmonary nodule. CT LUNG RAD AND CT CHEST RECOMMENDATION: Lung-Rad 1 Negative: Continue annual screening with LDCT in 12 months. S Modifier (other clinically significant findings): None [facility], , 03/05/2024 1:25 PM
== END | disposition home or self-care (01) ==
LOC: RADCTMAIN 12:22
PROVIDERS: ATTEND Family Medicine
DX: Z12.2 Encounter for screening for malignant neoplasm of respiratory organs (principal); Z87.891 Personal history of nicotine dependence
CPT/HCPCS: 71271

== ENCOUNTER → 2024-04-02 | Outpatient (CLI) | payer MEDICARE, OTHER | END | disposition home or self-care (01) | LOC: LABWHC1 12:13 | PROVIDERS: ATTEND Psychiatry & Neurology Neurology | DX: R41.3 Other amnesia (principal); R20.2 Paresthesia of skin | CPT/HCPCS: 36415; 82607 ==

== ENCOUNTER → 2024-08-13 | Outpatient (CLI) | payer MEDICARE, OTHER ==
[2024-08-13 14:26] LABS: INR 0.9 (<1.2); Partial Thromboplastin Time 23.3 sec (22.0-30.0)
[2024-08-13 18:26] LABS: HCT 40.6 % (37.2-46.3); HGB 13.2 g/dL (12.0-15.0); MCH 30.3 pg (27.0-32.0); MCHC 32.5 g/dL (32.0-37.0); MCV 93.3 FL (80.0-97.0); NRBC Per 100 WBC 0 X 10*3/uL (0.00-0.01); Platelet Count 219 X 10*3/uL (140-440); RBC 4.35 X 10*6/uL (4.10-5.20); RDW 11.9 % (11.5-14.5); WBC 5.69 X 10*3/uL (4.50-10.00)
[2024-08-13 18:27] LABS: Basophils # (A) 0.07 X 10*3/uL (0.00-0.10); Basophils % (A) 1.2 %; Eosinophils # (A) 0.15 X 10*3/uL (0.04-0.35); Eosinophils % (A) 2.6 %; Lymphocytes # (A) 1.45 X 10*3/uL (0.90-5.00); Lymphocytes % (A) 25.5 %; Monocytes # (A) 0.47 X 10*3/uL (0.20-1.00); Monocytes % (A) 8.3 %; Neutrophils # (A) 3.52 X 10*3/uL (1.80-7.70); Neutrophils % (A) 61.9 %
[2024-08-13 18:38] LABS: ALT 18 U/L (8-44); AST 27 U/L (13-35); Albumin 4.3 g/dL (3.8-4.9); Albumin/Globulin Ratio 1.72 Ratio (1.60-3.17); Alkaline Phosphatase 55 U/L (41-126); Blood Urea Nitrogen 17.6 mg/dL (9.0-27.0); Calcium 9.5 mg/dL (8.7-10.3); Carbon Dioxide 22.7 mmol/L (21.6-31.8); Chloride 106 mmol/L (96-109); Globulin 2.5 g/dL (1.6-3.3); Glucose 105 mg/dL (70-110); Potassium 4.3 mmol/L (3.5-5.5); Sodium 140 mmol/L (135-145); Total Bilirubin 0.4 mg/dL (0.3-1.2); Total Protein 6.8 g/dL (6.2-8.2)
== END | disposition home or self-care (01) ==
LOC: LABWHC1 13:02
PROVIDERS: ATTEND Orthopaedic Surgery
DX: Z01.818 Encounter for other preprocedural examination (principal); Z22.322 Carrier or suspected carrier of Methicillin resistant Staphylococcus aureus; E11.9 Type 2 diabetes mellitus without complications; M16.11 Unilateral primary osteoarthritis, right hip; M81.0 Age-related osteoporosis without current pathological fracture
CPT/HCPCS: 36415; 80053; 83036; 85025; 85610; 85730; 86850; 86870; 86900; 86901; 87070

== ENCOUNTER 2024-08-23 11:48 | Day surgery (SDC) | payer MEDICARE, OTHER ==
[~2024-08-23 11:48] MED LIST changes: +HYDROmorphone 0.5 MG/0.5 ML SYRINGE IVP PRN; -ONDANSETRON 4 MG/2 ML VIAL IVP ONE; +ONDANSETRON 4 MG/2 ML VIAL IVP PRN; +TRANEXAMIC 1,000 MG/100ML-NACL 1,000 MG in SALINE 1 100ML.BAG IV PRN; +TRANEXAMIC 1,000 MG/100ML-NACL 1,000 MG in SALINE 1 100ML.BAG IVPB PRN; -ceFAZolin 1,000 MG in SODIUM CHLORIDE 0.9% IRRIGATIO 1,000 ML IRRIGATION PRN; +fentaNYL (PF) 50 MCG/ML 2 ML AMP IVP PRN
[2024-08-23] MEDS: ACETAMINOPHEN TAB 500 MG TAB PO PRN (12:44)
[2024-08-23] MEDS: DOCUSATE 100 MG CAP PO PRN (12:46)
[2024-08-23] MEDS: oxyCODONE ER 10 MG TAB.ER.12H PO PRN (12:46)
[2024-08-23] MEDS: ONDANSETRON 4 MG/2 ML VIAL IVP ONE (12:47)
[2024-08-23] MEDS: DEXAMETHASONE SOD PHOSPHATE 10 MG/ML 1 ML VIAL IV PRN (12:47)
[2024-08-23] MEDS: FAMOTIDINE 20 MG/2 ML VIAL IVP PRN (12:48)
[2024-08-23] MEDS: LACTATED RINGERS 1,000 ML IV SCH (12:48)
[2024-08-23] MEDS: KETOROLAC 15 MG/ML 1 ML VIAL IVP PRN (12:48)
[2024-08-23] MEDS: MIDAZOLAM 2 MG/2 ML VIAL IV PRN (12:59)
[2024-08-23] MEDS: IV FLUID CONTINUATION 1,000 ML IV ONE (13:13)
[2024-08-23] MEDS ORDERED: PHENYLEPHRINE-0.9% NACL SYG 1,000 MCG/10 ML SYRINGE ONE (13:50)
[2024-08-23] MEDS ORDERED: NEOSTIGMINE 1 MG/ML 10 ML VIAL ONE (13:50)
[2024-08-23] MEDS ORDERED: GLYCOPYRROLATE 0.2 MG/ML 2 ML VIAL ONE (13:50)
[2024-08-23] MEDS ORDERED: ROPIVACAINE 5 MG/ML 30 ML VIAL ONE (13:50)
[2024-08-23] MEDS ORDERED: PROPOFOL 10 MG/ML 20 ML VIAL IV ONE (13:50)
[2024-08-23] MEDS ORDERED: WATER FOR INJECTION, STERILE 10 ML VIAL IV ONE (13:50)
[2024-08-23] MEDS ORDERED: LIDOCAINE 1% INJ 10MG/ML (20 ML MDV) ONE (13:50)
[2024-08-23] MEDS ORDERED: DEXAMETHASONE SOD PHOSPHATE 4 MG/ML 1 ML VIAL ONE (13:50)
[2024-08-23] MEDS ORDERED: ROCURONIUM 10 MG/ML (5 ML VIAL) IV ONE (13:50)
[2024-08-23] MEDS ORDERED: ePHEDrine 50 MG/ML 1 ML VIAL ONE (13:50)
[2024-08-23] MEDS ORDERED: fentaNYL (PF) 50 MCG/ML 2 ML AMP ONE (13:50)
[2024-08-23] MEDS ORDERED: SUCCINYLCHOLINE CHLORIDE 200 MG/10 ML VIAL IV ONE (13:50)
[2024-08-23] MEDS ORDERED: TRANEXAMIC 1,000 MG/100ML-NACL PREMIX BAG ONE (13:50)
[2024-08-23] MEDS: ceFAZolin 2 GM in DEXTROSE 5% IN WATER 50 ML IVPB PRN (13:55)
[2024-08-23] MEDS: ROPIVACAINE/EPI/CLONIDINE/KET 50 ML SYRINGE MISCELLANE PRN (14:30)
[2024-08-23] MEDS: LACTATED RINGERS 1,000 ML IV ONE (14:47)
--- NOTE | 2024-08-23 15:43 | XR ---
EXAMINATION TYPE: XR Hip Limited RT, FL guidance operating room DATE OF EXAM: 08/23/2024 3:36 PM COMPARISON: None CLINICAL INDICATION: Female, 79 years old with history of M16.11 RIGHT HIP OSTEOARTHRITIS; PHH, pain TECHNIQUE: XR Hip Limited RT, FL guidance operating room; Frontal view FLUOROSCOPY Sequential images during placement of right hip total arthroplasty. Total fluoroscopy time 25.3 secon ds. Total dose 0.76 Gycm2. 7 images are submitted. Final AP image shows gross anatomic alignment with out evident complication. [facility], , 08/23/2024 3:41 PM
[2024-08-23] MEDS ORDERED: MAGNESIUM HYDROXIDE 2,400 MG/30 ML CUP PO PRN (15:45)
[2024-08-23] MEDS ORDERED: HYDROmorphone 0.5 MG/0.5 ML SYRINGE IVP PRN ×3 (15:45)
[2024-08-23] MEDS ORDERED: diazePAM 5 MG TAB PO PRN ×2 (15:45)
[2024-08-23] MEDS ORDERED: TEMAZEPAM 15 MG CAP PO PRN (15:45)
[2024-08-23] MEDS ORDERED: NALOXONE 0.4 MG/ML 1 ML VIAL IV PRN (15:45)
[2024-08-23] MEDS ORDERED: HYDROcodone/APAP 10-325MG 1 EACH TAB PO PRN (15:45)
[2024-08-23] MEDS ORDERED: HYDROcodone/APAP 5-325MG 1 EACH TAB PO PRN (15:45)
[2024-08-23] MEDS ORDERED: ONDANSETRON 4 MG/2 ML VIAL IVP PRN (15:45)
--- NOTE | 2024-08-23 15:45 | P.OP ---
Date of Procedure: 08/23/24 Preoperative Diagnosis: Severe right hip osteoarthritis Postoperative Diagnosis: Same Procedure(s) Performed: Right direct anterior total hip arthroplasty Implants: 1. In[place]ar Trident II Acetabular Cup, Size #52 2. Ben Accolade C Size #4 Femoral Stem, Standard Offset 3. Dual Mobility OD 42 mm, ID 28 mm, +0 mm neck Anesthesia: GETA, regional Surgeon: Cy Sparks Rerolling Machine Operator #1: Gulshan Carr Estimated Blood Loss (ml): 200 IV fluids (ml): 800 Pathology: none sent Condition: stable Disposition: PACU Indications for Procedure: The patient is a very pleasant 79-year-old male who I been seeing for the last year with right leg pain. She was initially manage for knee pain. Her x-rays and MRI were relatively normal with minimal arthritic changes. We ultimately obtained x-rays of the patient's hip which showed severe arthritis. Her exam was consistent with hip arthritis as she had pain with passive range of motion of the hip. She was still concerned that she had issues with her knee but I discussed with her referred pain from the hip. I recommended proceeding with a total hip replacement. The patient and her daughter understand this. I had a long discussion with the patient in the office on the potential risks and complications of an elective total hip replacement through a direct anterior approach. Risks discussed include, but are certainly not limited to, risks from anesthesia, superficial infection requiring local wound care or antibiotics, deep bruce-prosthetic joint infection and the treatment required to eradicate infection, intraoperative fracture, postoperative periprosthetic fracture, damage to local blood vessels or nerves particularly the lateral femoral cutaneous nerve, delayed wound healing requiring local wound care or possibly surgical debridement, hip dislocation, leg length discrepancy, soft tissue irritation around the total hip implant such as iliopsoas tendinitis or trochanteric bursitis, wear and osteolysis from the implants, squeaking or audible noises, groin pain, thigh pain, heterotopic ossification, stiffness, aseptic loosening of the implants, dissatisfaction with surgical outcome, need for revision surgery, DVT, PE, swelling of the operative extremity, acute coronary event, stroke, failure to thrive, and possibly loss of life or limb. The patient understands that while these are the most common complications after an elective hip replacement there are certainly other less common complications possible. They were given ample time to ask questions regarding the potential complications of a hip replacement. Following our discussion the patient provided their verbal and written consent to go forward with an elective total hip replacement. Operative Findings: Severe right hip osteoarthritis Description of Procedure: The patient was identified in the preoperative holding area and the correct hip was marked with my initials. I reviewed the procedure and consent with the patient. All of their questions were answered. The patient was then brought back into the operating room by anesthesia. [facility] was administered by the anesthesia team. Preoperative antibiotics and tranexamic acid were also given. After the patient was under anesthesia I examined their ankles to determine their preoperative leg length discrepancy. The skin over th e anterior aspect of the hip was shaved to remove hair over the site of planned incision. Both feet and ankles were padded with webril and boots for the [place] were applied. The patient was then carefully transferred onto the [place] table. A perineal post was immediately placed. The arms were placed on arm holders and were well-padded. Both boots were secured to the spars on the [place] table. The patient was positioned so that the pelvis was centered over the post. Nonsterile drapes were applied. A timeout was performed identifying the correct patient, operative extremity, and procedure. At this point fluoroscopy was brought in to take preoperative images of the pelvis and operative hip. Using the standing AP pelvis from the office as a template, a comparable image was obtained with fluoroscopy. A metallic bar was used to create a bi-ischial line for use as a reference to leg length adjustments during the procedure. Global offset was also measured on both the operative and nonoperative leg. Fluoroscopy was then brought out and a pre-scrub using a chlorhexidine scrub brush was performed. The operative limb was then prepped and draped in the standard sterile fashion. An anterior longitudinal incision was made lateral and distal to the ASIS. The skin and subcutaneous tissues were incised sharply. The underlying tensor fascia was identified and incised in its midportion. The fascia was dissected free from the underlying muscle and the muscle belly was retracted. A blunt tipped cobra retractor was placed over the superior neck under the muscle fibers of the gluteus minimus. The deep enveloping fascia of the tensor was incised. The anterior leash of vessels were then identified and cauterized. The fascia between the rectus and the capsule was then incised and the pre-capsular fat was excised. A second Cobra was placed inferior to the neck. The interval between the rectus and iliocapsularis and the hip capsule was developed and a retractor was placed carefully over the anterior rim of the acetabulum. A T-shaped anterior capsulotomy was performed. The superior capsular leaflet was left in place in the inferior capsular flap was excised. The Cobra retractors were placed intracapsularly. We then made a femoral neck osteotomy according to preoperative and intraoperative templating and confirmed the level of the osteotomy using fluoroscopic imaging. The femoral head was removed, passed off to the back table, and sized. The superior capsular flap was excised. Retractors were placed circumferentially exposing the acetabulum. We then circumferentially debrided the acetabulum free of labrum and osteophytes. The pulvinar was removed to fully visualize the cotyloid fossa. We then sequentially reamed to achieve peripheral fit and excellent bleeding subchondral bone. The socket was thoroughly irrigated. The acetabular component was impacted into the appropriate position using fluoroscopy to guide version, inclination, and depth of insertion taking care to have a comparable image of the AP pelvis to the standing image taken in the office. An excellent press-fit was achieved and final position was confirmed using fluoroscopy. The press fit was augmented with bony cancellus dome screws. The liner was then impacted into the socket. Attention was then turned to the femur. The remnant dorsal lateral capsule was excised. The short external rotators were visible and protected. A bone hook was used to confirm appropriate translation of the trochanter away from the acetabulum. The leg was then extended and adducted and the bone hook was used to elevate the femur for broaching. On inspection of the patient's proximal femur, they appeared to have poor bone quality so I elected to proceed with cemented fixation of the femoral component. A box osteotome and blunt tipped canal sound was then utilized to gain access to the femoral canal. We then sequentially broached the femur in appropriate anteversion until torsional s tability was achieved and the implant was felt to have reached the appropriate size to allow trialing. The neck cut was brought flush to the trial broach with a calcar planar. A trial neck and head were then placed onto the broach and the hip was atraumatically reduced under direct visualization. External rotation to 90 was performed to assess stability. Fluoroscopy was brought in. An AP and lateral fluoroscopic image of the proximal femur was obtained to assess position and fill of the trial broach. An AP of the pelvis was then obtained and matched to the preoperative image taken. A bi-ischial bar was then placed and measurements were taken to assess changes in length and offset. The hip was then carefully dislocated, the proximal femur was exposed, and the trial implants were removed. The proximal femur was then prepared for cementing. The canal was thoroughly irrigated with pulsatile lavage to remove blood and marrow contents. A cement restrictor was placed to a depth just distal to the tip of the final implant. Epinephrine-soaked gauze was then packed into the proximal femur. 2 bags of cement were then mixed using a centrifuge and placed into a cement gun. Anesthesia was notified that cementing was about to commence to make sure the patient was appropriately ventilated and hydrated. Once the cement had reached appropriate consistency, the cement gun was used to fill the canal in a retrograde fashion starting at the restrictor. Cement was then pressurized into the canal with a blue tipped fast food server. The stem was then carefully introduced into the cement taking care to guide the implant into appropriate version. The stem was held in position until the cement had fully set. All extra cement was removed while the cement was hardening. The trunnion was cleansed and the final head was tapped into place to engage the James taper. The acetabulum was irrigated and visualized to be free of debris. The hip was carefully reduced. Stability was checked clinically with external rotation to 90 and there was no evidence of instability. Final fluoroscopic images were taken. The wound was then thoroughly irrigated and soaked with a dilute Betadine rinse for 3 minutes. 3 L of sterile saline was irrigated through the wound using pulsatile lavage. Local anesthetic cocktail was injected into the soft tissues around the surgical field. The wound was then closed in layers. A sterile dressing was placed over the surgical incision. The drapes were taken down and the patient was carefully transferred off of the [place] table. Following removal of the boots the leg lengths felt acceptable. The patient was then taken to recovery room having tolerated the procedure well. Gulshan Carr PA-C was required as a skilled hr assistant due to the complexity of surgery for patient positioning, draping, exposure, retraction, closure of wound and application of dressing. PLAN: The patient can weight-bear as tolerated on the operative extremity. 2 doses of postoperative antibiotics. DVT prophylaxis with aspirin 81 mg twice a day based on preoperative risk stratification. Physical therapy for gait training.
[2024-08-23] MEDS: SODIUM CHLORIDE 0.9% 1,000 ML IV SCH (17:56)
[2024-08-23] MEDS: DEXAMETHASONE SOD PHOSPHATE 4 MG/ML 1 ML VIAL IV ONE (18:03)
[2024-08-23 20:01] VITALS: RESP 17
[2024-08-23] MEDS: SENNOSIDES-DOCUSATE SODIUM 1 EACH TAB PO SCH (21:19)
[2024-08-23] MEDS: BENZOCAINE/MENTHOL LOZENG 1 EACH LOZENGE MUCOUS MEM PRN (21:19)
[2024-08-23] MEDS: ASPIRIN 81 MG PO SCH (21:21)
[2024-08-23] MEDS: hydrOXYzine pamoate 25 MG CAP PO PRN (21:21)
[2024-08-23] MEDS: ceFAZolin 2 GM in DEXTROSE 5% IN WATER 50 ML IVPB SCH (21:22)
--- NOTE | 2024-08-24 07:37 | P.PN ---
Subjective Patient was seen at bedside this morning. She is having some pain in her right hip but is otherwise comfortable. She denies chest pain or shortness of breath. No acute events per nursing, although she was unsteady when getting up to go to the bathroom. Objective - Vital Signs Vital signs: Vital Signs Temp 97.7 F 08/24/24 01:32 Pulse 82 08/24/24 01:32 Resp 17 08/24/24 01:32 BP 99/61 08/24/24 01:32 Pulse Ox 97 08/24/24 01:32 FiO2 Intake & Output 08/23/24 08/24/24 08/24/24 18:59 06:59 18:59 Intake Total 2000 Output Total 200 Balance 1800 Weight 67.9 kg Intake: IV 1999 Output: Estimated Blood Loss 200 Other: Voiding Method Toilet # Voids 1 - Exam Patient is resting comfortably in her bed. A focused exam of the right hip was conducted. Her dressing is intact with no drainage or strikethrough. Her thigh is soft and compressible. Femoral nerve function is intact. She is able to actively plantarflex and dorsiflex her ankle and her toes. Her foot is warm and well-perfused with brisk capillary refill Assessment and Plan Assessment: Postoperative day #1 status post right direct anterior total hip arthroplasty, doing well Plan: 1. Weightbearing as tolerated on the operative extremity. Up with assistance and a walker. 2. DVT prophylaxis with aspirin 81 mg twice a day 3. Physical therapy for gait training and mobilization 4. Leave surgical dressing in place. 5. Internal medicine for perioperative medical management 6. Disposition: Awaiting evaluation by physical therapy. We will plan on keeping the patient in additional 24 to 48 hours for therapy. If she does well and would like to discharge home today she can.
[2024-08-24] MEDS: FAMOTIDINE 20 MG TAB PO SCH (08:35)
[2024-08-24 09:00] VITALS: BP 104/47; PULSE 77; TEMP 97.6
[2024-08-24] MEDS ORDERED: traMADol 50 MG TAB PO PRN (09:18)
[2024-08-24] MEDS: MULTIVITAMINS, THERA 1 EACH TAB PO SCH (10:16)
[2024-08-24] MEDS: traMADol 50 MG TAB PO PRN (10:16)
[2024-08-24 10:18] LABS: Basophils # (A) 0.01 X 10*3/uL (0.00-0.10); Basophils % (A) 0.1 %; Eosinophils # (A) 0 X 10*3/uL (0.04-0.35); Eosinophils % (A) 0 %; HCT 29.3 % (37.2-46.3); HGB 9.3 g/dL (12.0-15.0); Lymphocytes # (A) 0.62 X 10*3/uL (0.90-5.00); Lymphocytes % (A) 5.9 %; MCH 30.5 pg (27.0-32.0); MCHC 31.7 g/dL (32.0-37.0); MCV 96.1 FL (80.0-97.0); Mean Platelet Volume 11.2 FL (9.5-12.2); Monocytes # (A) 0.49 X 10*3/uL (0.20-1.00); Monocytes % (A) 4.7 %; NRBC Per 100 WBC 0 X 10*3/uL (0.00-0.01); Neutrophils % (A) 88.9 %; Platelet Count 149 X 10*3/uL (140-440); RBC 3.05 X 10*6/uL (4.10-5.20); RDW 11.9 % (11.5-14.5); WBC 10.46 X 10*3/uL (4.50-10.00)
[2024-08-24] MEDS ORDERED: TEMAZEPAM 15 MG CAP PO PRN (22:00)
--- NOTE | 2024-08-25 19:00 | P.ANPRN ---
Procedure Note - Anesthesia - Nerve Block Performed Right Good Single Time Out Performed: Yes Date of Procedure: 08/23/24 Procedure Start Time: 12:58 Procedure Stop Time: 13:03 Location of Patient: PreOp Indication: Acute Post-Operative Pain, Requested by Surgeon Sedation Type: Sedate with meaningful contact maintained Preparation: Sterile Prep Position: Supine Needle Types: Pajunk Needle Gauge: 21 Ultrasound used to visualize needle placement: Yes Ultrasound used to observe medication spread: Yes Blood Aspirated: No Pain Paresthesia on Injection Noted: No Resistance on Injection: Normal Image Stored and Saved: Yes Events: Uneventful and Well Tolerated (Ropivacaine 0.5% 20 cc plus dexamethasone 4 mg)
== END 2024-08-24 14:08 | disposition home or self-care (01) ==
LOC: OR 11:48 → 4SSUR 15:54 → OR 08-24 14:08
PROVIDERS: ATTEND Orthopaedic Surgery
DX: M16.11 Unilateral primary osteoarthritis, right hip (principal); G89.18 Other acute postprocedural pain; E78.5 Hyperlipidemia, unspecified; J44.9 Chronic obstructive pulmonary disease, unspecified; E07.9 Disorder of thyroid, unspecified; F03.90 Unspecified dementia, unspecified severity, without behavioral disturbance, psychotic disturbance, mood disturbance, and anxiety; Z79.890 Hormone replacement therapy; Z79.899 Other long term (current) drug therapy; Z88.8 Allergy status to other drugs, medicaments and biological substances; Z88.1 Allergy status to other antibiotic agents
CPT/HCPCS: 27130; 97161; 64473; 85025; 73501; C1776; C1713; J2250; J0171; J0330; J1100 ×2; J2710; J0690 ×2; J2405; J2003; J3010; J2795; J1885; J2704; J2371; J1596; J1308

== ENCOUNTER → 2024-08-26 | Outpatient (CLI) | payer MEDICARE, OTHER ==
--- NOTE | 2024-08-26 16:53 | US ---
EXAMINATION TYPE: US venous doppler duplex LE RT DATE OF EXAM: 08/26/2024 4:25 PM COMPARISON: NONE CLINICAL INDICATION: Female, 79 years old with history of M25.551 PAIN IN RIGHT HIP; rt hip replaceme nt Monday08/23/2024, concerns of pain and swelling since sx, no hx of DVT, pt was told to not move leg as minimal as possible, Pain TECHNIQUE: The lower extremity deep venous system is examined utilizing real time linear array sonog milli with graded compression, color doppler sonography, and spectral doppler. SIDE PERFORMED: Right FINDINGS: VESSELS IMAGED: Common Femoral Vein Deep Femoral Vein Greater Saphenous Vein * Femoral Vein Popliteal Vein Small Saphenous Vein * Proximal Calf Veins (* superficial vessels) limited scan due to pt unable to move leg Right Leg: appears negative for DVT, Color Doppler imaging shows patency of the vessels. Spectral wa veforms are within normal limits. Pop was limited due to pt unable to lift or bend knee Calf was limited due to edema IMPRESSION: No visualized deep venous thrombosis of the right lower extremity. Limited examination of the poplite al and calf veins. [facility], , 08/26/2024 4:50 PM
== END | disposition home or self-care (01) ==
LOC: RADUSWWP 16:01
PROVIDERS: ATTEND Orthopaedic Surgery
DX: M25.551 Pain in right hip (principal); Z96.641 Presence of right artificial hip joint